=== PATIENT | female | born 1975 | race Caucasian/White ===

== ENCOUNTER 2018-07-14 01:34 | Outpatient (RCR) | payer MEDICARE, SELFPAY ==
[2018-07-14] MEDS: Acetaminophen 325 MG TAB 650 MG PO (13:06)
[2018-07-14] MEDS: Normal Saline Flush 10 ML SYR IVP (13:07)
[2018-07-14] MEDS: diphenhydrAMINE 25 MG CAP PO (13:07)
[2018-07-14 13:59] VITALS: BP 114/57; PULSE 77; RESP 18; TEMP 37.1
[2018-07-14 14:30] VITALS: BP 115/50; PULSE 65; RESP 18; TEMP 37.1
== END 2018-07-23 ==
LOC: INF 01:34
PROVIDERS: PCP Family Medicine; Visit Provider Family Medicine
DX: M32.9 Systemic lupus erythematosus, unspecified (principal)
CPT/HCPCS: 96365; J0490

== ENCOUNTER 2018-08-17 08:22 | Outpatient (RCR) | payer MEDICARE, SELFPAY ==
[2018-08-17 09:13] VITALS: BP 171/84; PULSE 70; RESP 18; TEMP 37.2; O2SAT 97
[2018-08-17] MEDS: Acetaminophen 325 MG TAB 650 MG PO (09:18)
[2018-08-17] MEDS: diphenhydrAMINE 25 MG CAP PO (09:18)
[2018-08-17] MEDS: Normal Saline Flush 10 ML SYR IVP (10:01)
[2018-08-17 10:12] LABS: Abs Immature Grans 0.02 k/cumm (0.0-0.09); Absolute Basophil Count 0.02 k/cumm (0.0-0.2); Absolute Eosinophil Count 0.07 k/cumm (0.0-0.7); Absolute Lymphocyte Count 1.27 k/cumm (1.2-3.4); Absolute Monocyte Count 0.58 k/cumm (0.11-0.7); Absolute Neutrophil Count 4.97 k/cumm (1.2-6.7); Basophils % 0.3; HCT 41.6 % (36.0-46.0); HGB 14.1 g/dL (12.0-15.5); Immature Grans % 0.3; Lymphocytes % 18.3; Mean Corp. HGB Concentration 33.9 g/dL (32.0-36.0); Mean Corpuscular Hemoglobin 28.8 pg (27.0-33.0); Mean Corpuscular Volume 84.9 fL (80-95); Mean Platelet Volume 9.4 fL (8.0-11.0); Monocytes % 8.4; Neutrophils % 71.7; Platelet Count 327 x1000/uL (130-400); RBC Distribution Width 12.5 % (11.7-14.6); White Blood Cell Count 6.93 k/cumm (4.4-10.8)
[2018-08-17 10:25] LABS: ALT 40 U/L (12-78); AST 17 U/L (15-37); Albumin 3.5 g/dL (3.4-5.0); Alkaline Phosphatase 89 U/L (46-116); C-Reactive Protein 0.36 mg/dL (0.0-0.3); CREATININE 0.65 mg/dL (0.55-1.02)
[2018-08-17 10:40] VITALS: BP 132/88; PULSE 71; RESP 18; TEMP 37; O2SAT 97
[2018-08-17 10:49] LABS: ESR 42 MM/HR (0-20)
== END 2018-08-22 23:59 | disposition home or self-care (01) ==
LOC: INF 08:22
PROVIDERS: Internal Medicine; PCP Family Medicine; Visit Provider Family Medicine
DX: M32.9 Systemic lupus erythematosus, unspecified (principal)
CPT/HCPCS: 36415; 85652; 96365; 82040; 82565; 84075; 84450; 84460; 85025; 86140; J0490

== ENCOUNTER 2018-09-15 01:46 | Outpatient (RCR) | payer MEDICARE, SELFPAY ==
[2018-09-15] MEDS: Normal Saline Flush 10 ML SYR IVP (09:13)
[2018-09-15] MEDS: diphenhydrAMINE 25 MG CAP PO (09:37)
[2018-09-15] MEDS: Acetaminophen 325 MG TAB 650 MG PO (09:37)
[2018-09-15 09:52] VITALS: BP 132/80; PULSE 76; RESP 18; TEMP 37; O2SAT 96
== END 2018-09-22 23:59 | disposition home or self-care (01) ==
LOC: INF 01:46
PROVIDERS: PCP Family Medicine; Visit Provider Family Medicine
DX: M32.9 Systemic lupus erythematosus, unspecified (principal)
CPT/HCPCS: 96365; J0490

== ENCOUNTER 2018-10-12 01:56 | Outpatient (RCR) | payer MEDICARE, SELFPAY ==
[2018-10-12 10:18] LABS: ALT 43 U/L (12-78); AST 21 U/L (15-37); Albumin 3.2 g/dL (3.4-5.0); C-Reactive Protein 0.45 mg/dL (0.0-0.3); CREATININE 0.67 mg/dL (0.55-1.02)
[2018-10-12] MEDS: diphenhydrAMINE 25 MG CAP PO (10:38)
[2018-10-12] MEDS: Acetaminophen 325 MG TAB 650 MG PO (10:38)
[2018-10-12 10:46] LABS: ESR 41 MM/HR (0-20)
[2018-10-12] MEDS: Normal Saline Flush 10 ML SYR IVP (10:47)
[2018-10-12 10:49] VITALS: BP 136/85; PULSE 69; RESP 18; TEMP 36.5; O2SAT 99
[2018-10-12 11:14] VITALS: BP 134/77; PULSE 71; RESP 18; TEMP 36.5; O2SAT 96
[2018-10-12 11:54] VITALS: BP 124/47; PULSE 83; RESP 18; TEMP 36.4; O2SAT 96
[2018-10-12 12:12] VITALS: BP 152/76; PULSE 84; RESP 18; TEMP 36.3; O2SAT 98
== END 2018-10-22 23:59 | disposition home or self-care (01) ==
LOC: INF 01:56
PROVIDERS: Internal Medicine; PCP Family Medicine; Visit Provider Family Medicine
DX: M32.9 Systemic lupus erythematosus, unspecified (principal)
CPT/HCPCS: 36415; 85652; 96365; 82040; 82565; 84450; 84460; 86140; J0490

== ENCOUNTER 2018-11-11 02:34 | Outpatient (RCR) | payer MEDICARE, SELFPAY ==
[2018-11-11] MEDS: Acetaminophen 325 MG TAB 650 MG PO (09:12)
[2018-11-11] MEDS: diphenhydrAMINE 25 MG CAP PO (09:13)
[2018-11-11] MEDS: Normal Saline Flush 10 ML SYR IVP (09:13)
[2018-11-11 09:21] VITALS: BP 133/78; PULSE 68; RESP 18; TEMP 37; O2SAT 97
[2018-11-11 09:24] LABS: Abs Immature Grans 0.01 k/cumm (0.0-0.09); Absolute Basophil Count 0.02 k/cumm (0.0-0.2); Absolute Eosinophil Count 0.08 k/cumm (0.0-0.7); Absolute Lymphocyte Count 1.05 k/cumm (1.2-3.4); Absolute Monocyte Count 0.47 k/cumm (0.11-0.7); Absolute Neutrophil Count 3.95 k/cumm (1.2-6.7); Basophils % 0.4; Eosinophils % 1.4; HCT 38.2 % (36.0-46.0); HGB 12.9 g/dL (12.0-15.5); Immature Grans % 0.2; Lymphocytes % 18.8; Mean Corp. HGB Concentration 33.8 g/dL (32.0-36.0); Mean Corpuscular Hemoglobin 28.4 pg (27.0-33.0); Mean Platelet Volume 9.4 fL (8.0-11.0); Monocytes % 8.4; Neutrophils % 70.8; Platelet Count 328 x1000/uL (130-400); RBC 4.55 m/cumm (4.00-5.20); RBC Distribution Width 12.4 % (11.7-14.6); White Blood Cell Count 5.58 k/cumm (4.4-10.8)
[2018-11-11 09:49] LABS: ALT 38 U/L (12-78); Albumin 3.3 g/dL (3.4-5.0); Alkaline Phosphatase 82 U/L (46-116); C-Reactive Protein 0.56 mg/dL (0.0-0.3); CREATININE 0.64 mg/dL (0.55-1.02)
[2018-11-11 09:50] LABS: AST 30 U/L (15-37)
[2018-11-11 10:09] LABS: ESR 39 MM/HR (0-20)
[2018-11-11 10:39] VITALS: BP 140/67; PULSE 75; RESP 98; TEMP 36.5
[2018-11-11 11:09] VITALS: BP 137/78; PULSE 75; TEMP 36.7
== END 2018-11-22 23:59 | disposition home or self-care (01) ==
LOC: INF 02:34
PROVIDERS: PCP Family Medicine; Visit Provider Family Medicine
DX: M32.9 Systemic lupus erythematosus, unspecified (principal); E03.9 Hypothyroidism, unspecified
CPT/HCPCS: 36415; 85652; 96365; 82040; 82565; 84075; 84450; 84460; 85025; 86140; J0490

== ENCOUNTER 2018-12-16 00:54 | Outpatient (RCR) | payer MEDICARE, SELFPAY ==
[2018-12-16] MEDS: Normal Saline Flush 10 ML SYR IVP (08:38)
[2018-12-16] MEDS: Acetaminophen 325 MG TAB 650 MG PO (08:39)
[2018-12-16] MEDS: diphenhydrAMINE 25 MG CAP PO (08:39)
[2018-12-16 09:29] VITALS: BP 126/77; PULSE 81; O2SAT 94
[2018-12-16 09:48] VITALS: BP 130/75; PULSE 81; RESP 18; TEMP 36.6; O2SAT 98
[2018-12-16 10:29] VITALS: BP 144/87; PULSE 82; RESP 16; TEMP 37.1; O2SAT 97
== END 2018-12-23 23:59 | disposition home or self-care (01) ==
LOC: INF 00:54
PROVIDERS: PCP Family Medicine; Visit Provider Family Medicine
DX: M32.9 Systemic lupus erythematosus, unspecified (principal)
CPT/HCPCS: 96365; J0490

== ENCOUNTER 2019-01-01 15:37 | Emergency (ER) | payer MEDICARE, SELFPAY ==
[2019-01-01 16:54] VITALS: BP 162/90; PULSE 99; RESP 16; TEMP 36.5
--- NOTE | 2019-01-01 16:59 | W.ED.GENAD ---
Discharge Plan Disposition Patient Disposition: HOME Condition: Stable Discharge Details Chief Complaint: Sorethroat Clinical Impression: Pharyngitis Primary Care Provider: Awais Fox ED Provider: Faisal Vazquez Home Meds and New Rx's Prescriptions: New amoxicillin 500 mg tablet 500 mg PO TID Qty: 30 RF: 0 Continued Muscle Rub (with camphor) 113 GM cream 1 ambrose Topical BID RF: 0 aspirin [Aspirin Low-Strength] 81 MG tablet,chewable 1 tab.chew PO DAILY RF: 0 DIABETIC SOCKS 1 EACH EACH 2 ea Miscellaneous RF: 0 hydroxychloroquine [Plaquenil] 200 MG tablet 200 mg PO BID Qty: 180 RF: 3 triamcinolone acetonide 15 GM cream 15 gm Topical BID Qty: 80 RF: 3 Denavir 1.5 GM cream 1 ambrose Topical BID Qty: 1.5 RF: 5 cyclobenzaprine 10 MG tablet 10 mg PO HS Qty: 90 RF: 4 naproxen 500 MG tablet 500 mg PO TID Qty: 90 RF: 3 PNV cmb#95-ferrous fumarate-FA 1 EACH tablet 1 ea PO DAILY Qty: 90 RF: 4 nystatin (bulk) 1 EACH powder Topical QID Qty: 60 RF: 2 hydrocodone-acetaminophen 1 EACH tablet 1 tab-cap PO Q4H PRN Qty: 20 RF: 0 levothyroxine 50 MCG tablet 50 mcg PO DAILY Qty: 30 RF: 2 Discharge Instructions Instructions: Pharyngitis (ED) Medical Decision Making 43 yo female with hx of lupus comes in with complaint of sore throat for over a week . Was seen by pcp's office on 12/30 and had negative strep but continues to have sore throat and sinus pressure. She states in the past she requires an abx to recover from these types of things. On exam she is speaking in full sentences, no drooling or stridor, no restricted neck movements and no pain over hyoid with midline uvula, no findings to suggest rpa, patrol captain, epiglotitis. She does have erythema of posterior pharynx. I educated about viral vs bacterial pharyngitis and after discussion she would like to have an abx. Will start her on amoxicillin and advised f/u with pcp and return if worsening HPI General Mode of arrival: ambulatory. Date/Time Provider Initiated Documentation: 01/01/19 16:59. Limitations to Documentation: no limitations. Information obtained by: patient. History of Present Illness 43 year old F presents to the emergency department with the chief complaint of sore throat, described as moderate, Quality is described as aching, Patient reports no radiation. Patient started experiencing this week(s) (1) and it has been constant. No relieving factors improve symptom(s), No exacerbating factors reported . Related Data Home Medications Medication Instructions Recorded Confirmed Muscle Rub (with camphor) 1 ambrose TOPICAL BID 01/24/13 01/01/19 aspirin [Aspirin Low-Strength] 1 tab.chew PO DAILY tab.chew 01/24/13 01/01/19 Diabetic Socks 2 ea MISCELLANEOUS ea 03/16/13 12/30/18 hydroxychloroquine [Plaquenil] 200 mg PO BID #180 tab-cap 03/22/13 01/01/19 triamcinolone acetonide 15 gm TOPICAL BID #80 g 08/19/13 01/01/19 Denavir 1 ambrose TOPICAL BID #1.5 g 12/05/14 01/01/19 cyclobenzaprine 10 mg PO HS #90 tab-cap 06/06/16 01/01/19 naproxen 500 mg PO TID #90 tab 01/23/17 01/01/19 PNV cmb#95-ferrous fumarate-FA 1 ea PO DAILY #90 tab 10/13/17 12/30/18 nystatin (bulk) 0 TOPICAL QID #60 g 11/12/17 12/30/18 hydrocodone-acetaminophen 1 tab-cap PO Q4H PRN #20 tab-cap 05/20/18 01/01/19 levothyroxine 50 mcg PO DAILY #30 tab-cap 06/09/18 01/01/19 amoxicillin 500 mg PO TID #30 tab 01/01/19 Previous Rx's Medication Instructions Recorded PNV cmb#95-ferrous fumarate-FA 1 ea PO DAILY #90 tab 10/13/17 levothyroxine 50 mcg PO DAILY #30 tab-cap 06/09/18 amoxicillin 500 mg PO TID #30 tab 01/01/19 Allergies Allergy/AdvReac Type Severity Reaction Status Date / Time oxycodone AdvReac Intermediate Nausea & Unverified 01/01/19 16:59 Vomiting General Stated Complaint: Sorethroat ROVERTO: 4 Review of Systems Review of Systems All systems reviewed & are unremarkable except as noted in HPI and below Constitutional Denies chills and Denies fever(s) Cardiovascular Denies chest pain Gastrointestinal Denies nausea and Denies vomiting Musculoskeletal Denies joint swelling PFSH Medical History Back pain due to injury External hemorrhoid Lupus (systemic lupus erythematosus) Menorrhagia Obesity Surgical History section knee surgery Family History Father Mental disorder Mother Diabetes Sister Diabetes Grandmother Diabetes Social History Smoking and Tabacco status: Never Exam Const General: no acute distress Orientation: alert HENMT Head: normal to inspection Ears: external ears normal General nose exam: external nose normal Mouth: moist mucous membranes Eyes General: appearance normal, both eyes and all related structures Neck Neck: normal visual inspection Resp Effort & Inspection: normal respiratory effort and able to speak in complete sentences Cardio Rate: regular rate Skin General skin exam: no rashes or lesions noted Neuro General: alert and oriented x3 Extrem General: normal to inspection Psych Mental Status: mental status grossly normal Course Vital Signs Temperature 36.5 C 01/01/19 16:54 Pulse 99 H 01/01/19 16:54 Respiratory Rate 16 01/01/19 16:54 Blood Pressure 162/90 H 01/01/19 16:54 Temperature 36.5 C 01/01/19 16:54 Temperature Source Temporal Artery Scan 01/01/19 16:54 Pulse 99 H 01/01/19 16:54 Respiratory Rate 16 01/01/19 16:54 Blood Pressure 162/90 H 01/01/19 16:54 Blood Pressure Position Sitting 01/01/19 16:54 Oxygen Delivery Method Room Air 01/01/19 16:54 Oxygen Flow Rate 0 01/01/19 16:54 Pain Level 9 01/01/19 16:54
--- NOTE | 2019-01-01 17:09 | ED.GENADUL_ITS ---
Discharge Plan Disposition Patient Disposition: HOME Condition: Stable Discharge Details Chief Complaint: Sorethroat Clinical Impression: Pharyngitis Primary Care Provider: Awais Fox ED Provider: Faisal Vazquez Home Meds and New Rx's Prescriptions: New amoxicillin 500 mg tablet 500 mg PO TID Qty: 30 RF: 0 Continued Muscle Rub (with camphor) 113 GM cream 1 ambrose Topical BID RF: 0 aspirin [Aspirin Low-Strength] 81 MG tablet,chewable 1 tab.chew PO DAILY RF: 0 DIABETIC SOCKS 1 EACH EACH 2 ea Miscellaneous RF: 0 hydroxychloroquine [Plaquenil] 200 MG tablet 200 mg PO BID Qty: 180 RF: 3 triamcinolone acetonide 15 GM cream 15 gm Topical BID Qty: 80 RF: 3 Denavir 1.5 GM cream 1 ambrose Topical BID Qty: 1.5 RF: 5 cyclobenzaprine 10 MG tablet 10 mg PO HS Qty: 90 RF: 4 naproxen 500 MG tablet 500 mg PO TID Qty: 90 RF: 3 PNV cmb#95-ferrous fumarate-FA 1 EACH tablet 1 ea PO DAILY Qty: 90 RF: 4 nystatin (bulk) 1 EACH powder Topical QID Qty: 60 RF: 2 hydrocodone-acetaminophen 1 EACH tablet 1 tab-cap PO Q4H PRN Qty: 20 RF: 0 levothyroxine 50 MCG tablet 50 mcg PO DAILY Qty: 30 RF: 2 Discharge Instructions Instructions: Pharyngitis (ED) Medical Decision Making 43 yo female with hx of lupus comes in with complaint of sore throat for over a week . Was seen by pcp's office on 12/30 and had negative strep but continues to have sore throat and sinus pressure. She states in the past she requires an abx to recover from these types of things. On exam she is speaking in full sentences, no drooling or stridor, no restricted neck movements and no pain over hyoid with midline uvula, no findings to suggest rpa, transmission rebuilder, epiglotitis. She does have erythema of posterior pharynx. I educated about viral vs bacterial pharyngitis and after discussion she would like to have an abx. Will start her on amoxicillin and advised f/u with pcp and return if worsening HPI General Mode of arrival: ambulatory . Date/Time Provider Initiated Documentation: 01/01/19 16:59 . Limitations to Documentation: no limitations . Information obtained by: patient . History of Present Illness 43 year old F presents to the emergency department with the chief complaint of sore throat, described as moderate, Quality is described as aching, Patient reports no radiation. Patient started experiencing this week(s) (1) and it has been constant. No relieving factors improve symptom(s), No exacerbating factors reported . Related Data Home Medications Medication Instructions Recorded Confirmed Muscle Rub (with camphor) 1 ambrose TOPICAL BID 01/24/13 01/01/19 aspirin [Aspirin Low-Strength] 1 tab.chew PO DAILY tab.chew 01/24/13 01/01/19 Diabetic Socks 2 ea MISCELLANEOUS ea 03/16/13 12/30/18 hydroxychloroquine [Plaquenil] 200 mg PO BID #180 tab-cap 03/22/13 01/01/19 triamcinolone acetonide 15 gm TOPICAL BID #80 g 08/19/13 01/01/19 Denavir 1 ambrose TOPICAL BID #1.5 g 12/05/14 01/01/19 cyclobenzaprine 10 mg PO HS #90 tab-cap 06/06/16 01/01/19 naproxen 500 mg PO TID #90 tab 01/23/17 01/01/19 PNV cmb#95-ferrous fumarate-FA 1 ea PO DAILY #90 tab 10/13/17 12/30/18 nystatin (bulk) 0 TOPICAL QID #60 g 11/12/17 12/30/18 hydrocodone-acetaminophen 1 tab-cap PO Q4H PRN #20 tab-cap 05/20/18 01/01/19 levothyroxine 50 mcg PO DAILY #30 tab-cap 06/09/18 01/01/19 amoxicillin 500 mg PO TID #30 tab 01/01/19 Previous Rx's Medication Instructions Recorded PNV cmb#95-ferrous fumarate-FA 1 ea PO DAILY #90 tab 10/13/17 levothyroxine 50 mcg PO DAILY #30 tab-cap 06/09/18 amoxicillin 500 mg PO TID #30 tab 01/01/19 Allergies Allergy/AdvReac Type Severity Reaction Status Date / Time oxycodone AdvReac Intermediate Nausea & Unverified 01/01/19 16:59 Vomiting General Stated Complaint: Sorethroat ROVERTO: 4 Review of Systems Review of Systems All systems reviewed & are unremarkable except as noted in HPI and below Constitutional Denies chills and Denies fever(s) Cardiovascular Denies chest pain Gastrointestinal Denies nausea and Denies vomiting Musculoskeletal Denies joint swelling PFSH Medical History Back pain due to injury External hemorrhoid Lupus (systemic lupus erythematosus) Menorrhagia Obesity Surgical History section knee surgery Family History Father Mental disorder Mother Diabetes Sister Diabetes Grandmother Diabetes Social History Smoking and Tabacco status: Never Exam Const General: no acute distress Orientation: alert HENMT Head: normal to inspection Ears: external ears normal General nose exam: external nose normal Mouth: moist mucous membranes Eyes General: appearance normal, both eyes and all related structures Neck Neck: normal visual inspection Resp Effort & Inspection: normal respiratory effort and able to speak in complete sentences Cardio Rate: regular rate Skin General skin exam: no rashes or lesions noted Neuro General: alert and oriented x3 Extrem General: normal to inspection Psych Mental Status: mental status grossly normal Course Vital Signs Temperature 36.5 C 01/01/19 16:54 Pulse 99 H 01/01/19 16:54 Respiratory Rate 16 01/01/19 16:54 Blood Pressure 162/90 H 01/01/19 16:54 Temperature 36.5 C 01/01/19 16:54 Temperature Source Temporal Artery Scan 01/01/19 16:54 Pulse 99 H 01/01/19 16:54 Respiratory Rate 16 01/01/19 16:54 Blood Pressure 162/90 H 01/01/19 16:54 Blood Pressure Position Sitting 01/01/19 16:54 Oxygen Delivery Method Room Air 01/01/19 16:54 Oxygen Flow Rate 0 01/01/19 16:54 Pain Level 9 01/01/19 16:54
== END 2019-01-01 17:48 | disposition home or self-care (01) ==
PROVIDERS: Emergency Provider Emergency Medicine; PCP Family Medicine
DX: J02.9 Acute pharyngitis, unspecified (principal)
CPT/HCPCS: 99283

== ENCOUNTER 2019-01-14 01:03 | Outpatient (RCR) | payer MEDICARE, SELFPAY | END 2019-01-20 23:59 | disposition home or self-care (01) | LOC: INF 01:03 | PROVIDERS: PCP Family Medicine; Visit Provider Family Medicine | DX: R69 Illness, unspecified (principal) ==

== ENCOUNTER 2019-02-18 01:50 | Outpatient (RCR) | payer MEDICARE, SELFPAY ==
[2019-02-18] MEDS: diphenhydrAMINE 25 MG CAP PO (08:45)
[2019-02-18] MEDS: Normal Saline Flush 10 ML SYR IVP (08:45)
[2019-02-18] MEDS: Acetaminophen 325 MG TAB 650 MG PO (08:45)
[2019-02-18 08:50] VITALS: BP 138/71; PULSE 85; RESP 18; TEMP 36.5; O2SAT 96
[2019-02-18 08:54] LABS: Abs Immature Grans 0.01 k/cumm (0.0-0.09); Absolute Basophil Count 0.03 k/cumm (0.0-0.2); Absolute Eosinophil Count 0.09 k/cumm (0.0-0.7); Absolute Lymphocyte Count 1.09 k/cumm (1.2-3.4); Absolute Neutrophil Count 4.59 k/cumm (1.2-6.7); Basophils % 0.5; Eosinophils % 1.4; HCT 42.4 % (36.0-46.0); HGB 14.4 g/dL (12.0-15.5); Immature Grans % 0.2; Lymphocytes % 17.3; Mean Corpuscular Hemoglobin 27.2 pg (27.0-33.0); Mean Corpuscular Volume 80.2 fL (80-95); Mean Platelet Volume 9.6 fL (8.0-11.0); Monocytes % 7.9; Neutrophils % 72.7; Platelet Count 314 x1000/uL (130-400); RBC 5.29 m/cumm (4.00-5.20); RBC Distribution Width 13.8 % (11.7-14.6); White Blood Cell Count 6.31 k/cumm (4.4-10.8)
[2019-02-18 09:10] LABS: ALT 35 U/L (12-78); AST 21 U/L (15-37); Albumin 3.6 g/dL (3.4-5.0); Alkaline Phosphatase 87 U/L (46-116); C-Reactive Protein 0.49 mg/dL (0.0-0.3); CREATININE 0.69 mg/dL (0.55-1.02)
[2019-02-18 09:31] LABS: ESR 36 MM/HR (0-20)
[2019-02-18 09:51] VITALS: BP 133/88; PULSE 87; RESP 18; TEMP 36.4; O2SAT 98
[2019-02-18 10:17] VITALS: BP 128/50; PULSE 75; RESP 18; TEMP 37; O2SAT 95
[2019-02-18 11:03] VITALS: BP 119/79; PULSE 81; RESP 16; TEMP 36.8; O2SAT 98
== END 2019-02-20 23:59 | disposition home or self-care (01) ==
LOC: INF 01:50
PROVIDERS: PCP Family Medicine; Visit Provider Family Medicine
DX: M32.9 Systemic lupus erythematosus, unspecified (principal)
CPT/HCPCS: 36415; 85652; 96365; 82040; 82565; 84075; 84450; 84460; 85025; 86140; J0490

== ENCOUNTER 2019-03-18 02:45 | Outpatient (RCR) | payer MEDICARE, SELFPAY ==
[2019-03-18] MEDS: Acetaminophen 325 MG TAB 650 MG PO (07:53)
[2019-03-18] MEDS: Normal Saline Flush 10 ML SYR IVP (07:53)
[2019-03-18] MEDS: diphenhydrAMINE 25 MG CAP PO (07:53)
[2019-03-18 08:50] VITALS: BP 118/75; PULSE 69; RESP 18; TEMP 36.7; O2SAT 95
[2019-03-18 09:20] VITALS: BP 120/67; PULSE 67; RESP 20; TEMP 36.7; O2SAT 97
[2019-03-18 09:55] VITALS: BP 113/70; PULSE 70; RESP 18; TEMP 36.7; O2SAT 96
== END 2019-03-22 23:59 | disposition home or self-care (01) ==
LOC: INF 02:45
PROVIDERS: PCP Family Medicine; Visit Provider Family Medicine
DX: M32.9 Systemic lupus erythematosus, unspecified (principal)
CPT/HCPCS: 96365; J0490

== ENCOUNTER 2019-04-20 01:47 | Outpatient (RCR) | payer MEDICARE, SELFPAY | END 2019-04-22 23:59 | disposition home or self-care (01) | LOC: INF 01:47 | PROVIDERS: PCP Family Medicine; Visit Provider Family Medicine | DX: R69 Illness, unspecified (principal) ==

== ENCOUNTER 2019-05-11 01:07 | Outpatient (RCR) | payer MEDICARE, SELFPAY ==
[2019-05-11] MEDS: diphenhydrAMINE 25 MG CAP PO (13:15)
[2019-05-11] MEDS: Acetaminophen 325 MG TAB 650 MG PO (13:15)
[2019-05-11] MEDS: Normal Saline Flush 10 ML SYR IVP (13:27)
[2019-05-11 13:30] VITALS: BP 114/78; PULSE 71; RESP 18; TEMP 36.7; O2SAT 95
[2019-05-11 13:30] LABS: Abs Immature Grans 0.01 k/cumm (0.0-0.09); Absolute Basophil Count 0.03 k/cumm (0.0-0.2); Absolute Lymphocyte Count 1.47 k/cumm (1.2-3.4); Absolute Monocyte Count 0.51 k/cumm (0.11-0.7); Absolute Neutrophil Count 4.82 k/cumm (1.2-6.7); Basophils % 0.4; Eosinophils % 1.4; HCT 40.1 % (36.0-46.0); HGB 13.8 g/dL (12.0-15.5); Immature Grans % 0.1; Lymphocytes % 21.2; Mean Corp. HGB Concentration 34.4 g/dL (32.0-36.0); Mean Corpuscular Hemoglobin 28.4 pg (27.0-33.0); Mean Corpuscular Volume 82.5 fL (80-95); Monocytes % 7.3; Neutrophils % 69.6; Platelet Count 239 x1000/uL (130-400); RBC 4.86 m/cumm (4.00-5.20); RBC Distribution Width 13.3 % (11.7-14.6); White Blood Cell Count 6.94 k/cumm (4.4-10.8)
[2019-05-11 14:06] VITALS: BP 115/75; PULSE 75; RESP 18; TEMP 36.5; O2SAT 98
[2019-05-11 14:41] VITALS: BP 143/82; PULSE 70; RESP 18; TEMP 36.3; O2SAT 94
[2019-05-11 15:48] LABS: ALT 30 U/L (12-78); AST 15 U/L (15-37); Albumin 3.1 g/dL (3.4-5.0); Alkaline Phosphatase 83 U/L (46-116); C-Reactive Protein 0.52 mg/dL (0.0-0.3); CREATININE 0.82 mg/dL (0.55-1.02)
[2019-05-11 16:51] LABS: ESR 28 MM/HR (0-20)
== END 2019-05-22 23:59 | disposition home or self-care (01) ==
LOC: INF 01:07
PROVIDERS: PCP Family Medicine; Visit Provider Family Medicine
DX: M32.9 Systemic lupus erythematosus, unspecified (principal)
CPT/HCPCS: 36415; 85652; 96365; 82040; 82565; 84075; 84450; 84460; 85025; 86140; J0490

== ENCOUNTER 2019-06-16 01:44 | Outpatient (RCR) | payer MEDICARE, SELFPAY ==
[2019-06-16] MEDS: Acetaminophen 325 MG TAB 650 MG PO (13:51)
[2019-06-16] MEDS: diphenhydrAMINE 25 MG CAP PO (13:51)
[2019-06-16] MEDS: Normal Saline Flush 10 ML SYR IVP (13:51)
[2019-06-16 13:55] VITALS: BP 122/81; PULSE 82; RESP 18; TEMP 36.4; O2SAT 98
[2019-06-16 14:30] VITALS: BP 119/80; PULSE 77; RESP 18; TEMP 36.5; O2SAT 99
== END 2019-06-22 23:59 | disposition home or self-care (01) ==
LOC: INF 01:44
PROVIDERS: PCP Family Medicine; Visit Provider Family Medicine
DX: M32.9 Systemic lupus erythematosus, unspecified (principal)
CPT/HCPCS: 96365; J0490

== ENCOUNTER 2019-07-22 01:13 | Outpatient (RCR) | payer MEDICARE, SELFPAY ==
[2019-07-22] MEDS: Acetaminophen 325 MG TAB 650 MG PO (11:00)
[2019-07-22] MEDS: Normal Saline Flush 10 ML SYR IVP (11:01)
[2019-07-22] MEDS: diphenhydrAMINE 25 MG CAP PO (11:01)
[2019-07-22 12:20] LABS: Abs Immature Grans 0.01 k/cumm (0.0-0.09); Absolute Basophil Count 0.03 k/cumm (0.0-0.2); Absolute Eosinophil Count 0.07 k/cumm (0.0-0.7); Absolute Lymphocyte Count 1.33 k/cumm (1.2-3.4); Absolute Neutrophil Count 6.32 k/cumm (1.2-6.7); Basophils % 0.4; Eosinophils % 0.8; HCT 43.7 % (36.0-46.0); HGB 14.9 g/dL (12.0-15.5); Immature Grans % 0.1; Lymphocytes % 16.1; Mean Corp. HGB Concentration 34.1 g/dL (32.0-36.0); Mean Corpuscular Hemoglobin 28.4 pg (27.0-33.0); Mean Corpuscular Volume 83.2 fL (80-95); Mean Platelet Volume 9.6 fL (8.0-11.0); Monocytes % 6.1; Neutrophils % 76.5; Platelet Count 363 x1000/uL (130-400); RBC 5.25 m/cumm (4.00-5.20); RBC Distribution Width 13.3 % (11.7-14.6); White Blood Cell Count 8.26 k/cumm (4.4-10.8)
[2019-07-22 12:23] VITALS: BP 118/89; PULSE 75; RESP 18; TEMP 36.5; O2SAT 99
[2019-07-22 12:34] LABS: ALT 31 U/L (14-59); AST 17 U/L (15-37); Albumin 3.6 g/dL (3.4-5.0); Alkaline Phosphatase 96 U/L (46-116); C-Reactive Protein 0.79 mg/dL (0.0-0.3)
[2019-07-22 12:49] VITALS: BP 118/88; PULSE 83; RESP 18; TEMP 37; O2SAT 100
[2019-07-22 13:08] VITALS: BP 116/80; PULSE 82; RESP 18; TEMP 36.8; O2SAT 98
== END 2019-07-23 23:59 | disposition home or self-care (01) ==
LOC: INF 01:13
PROVIDERS: PCP Family Medicine; Visit Provider Internal Medicine
DX: M32.9 Systemic lupus erythematosus, unspecified (principal)
CPT/HCPCS: 36415; 96365; 82040; 84075; 84450; 84460; 85025; 86140; J0490

== ENCOUNTER 2019-08-18 02:12 | Outpatient (RCR) | payer MEDICARE, SELFPAY ==
[2019-08-18] MEDS: Acetaminophen 325 MG TAB 650 MG PO (12:55)
[2019-08-18] MEDS: diphenhydrAMINE 25 MG CAP PO (12:55)
[2019-08-18] MEDS: Normal Saline Flush 10 ML SYR IVP (12:56)
== END 2019-08-22 23:59 | disposition home or self-care (01) ==
LOC: INF 02:12
PROVIDERS: PCP Family Medicine; Visit Provider Internal Medicine
DX: M32.9 Systemic lupus erythematosus, unspecified (principal)
CPT/HCPCS: 96365; J0490

== ENCOUNTER 2019-09-22 01:55 | Outpatient (RCR) | payer MEDICARE, SELFPAY ==
[2019-09-22] MEDS: diphenhydrAMINE 25 MG CAP PO (10:30)
[2019-09-22] MEDS: Normal Saline Flush 10 ML SYR IVP (10:30)
[2019-09-22] MEDS: Acetaminophen 325 MG TAB 650 MG PO (10:30)
[2019-09-22 10:38] VITALS: BP 114/76; PULSE 79; RESP 18; TEMP 37.1; O2SAT 98
[2019-09-22 11:02] LABS: Abs Immature Grans 0.01 k/cumm (0.0-0.09); Absolute Basophil Count 0.02 k/cumm (0.0-0.2); Absolute Eosinophil Count 0.05 k/cumm (0.0-0.7); Absolute Lymphocyte Count 0.79 k/cumm (1.2-3.4); Absolute Monocyte Count 0.69 k/cumm (0.11-0.7); Absolute Neutrophil Count 5.89 k/cumm (1.2-6.7); Basophils % 0.3; Eosinophils % 0.7; HCT 42.4 % (36.0-46.0); HGB 14.4 g/dL (12.0-15.5); Immature Grans % 0.1; Lymphocytes % 10.6; Mean Corpuscular Hemoglobin 28.5 pg (27.0-33.0); Mean Corpuscular Volume 83.8 fL (80-95); Mean Platelet Volume 9.5 fL (8.0-11.0); Monocytes % 9.3; Platelet Count 362 x1000/uL (130-400); RBC 5.06 m/cumm (4.00-5.20); White Blood Cell Count 7.45 k/cumm (4.4-10.8)
[2019-09-22 11:23] VITALS: BP 127/80; PULSE 79; RESP 19; TEMP 37.2; O2SAT 99
[2019-09-22 11:43] LABS: ESR 41 mm/hr (0-20)
[2019-09-22 11:53] VITALS: BP 127/83; PULSE 77; RESP 18; TEMP 37.1; O2SAT 100
[2019-09-22 12:23] VITALS: BP 124/83; PULSE 72; RESP 19; TEMP 37.2; O2SAT 100
[2019-09-22 12:43] LABS: ALT 31 U/L (14-59); AST 23 U/L (15-37); Albumin 3.7 g/dL (3.4-5.0); Alkaline Phosphatase 92 U/L (46-116); C-Reactive Protein 0.81 mg/dL (0.0-0.3); CREATININE 0.77 mg/dL (0.55-1.02)
== END 2019-09-22 23:59 | disposition home or self-care (01) ==
LOC: INF 01:55
PROVIDERS: Internal Medicine; PCP Family Medicine; Visit Provider Internal Medicine
DX: M32.9 Systemic lupus erythematosus, unspecified (principal)
CPT/HCPCS: 36415; 85652; 96365; 82040; 82565; 84075; 84450; 84460; 85025; 86140; J0490

== ENCOUNTER 2019-10-27 02:08 | Outpatient (RCR) | payer MEDICARE, SELFPAY ==
[2019-10-27 10:36] VITALS: BP 143/86; PULSE 77; RESP 19; TEMP 36.4; O2SAT 98
[2019-10-27] MEDS: diphenhydrAMINE 25 MG CAP PO (10:36)
[2019-10-27] MEDS: Acetaminophen 325 MG TAB 650 MG PO (10:36)
[2019-10-27] MEDS: Normal Saline Flush 10 ML SYR IVP (10:37)
[2019-10-27 11:06] LABS: Abs Immature Grans 0.01 k/cumm (0.0-0.09); Absolute Basophil Count 0.02 k/cumm (0.0-0.2); Absolute Eosinophil Count 0.04 k/cumm (0.0-0.7); Absolute Lymphocyte Count 0.85 k/cumm (1.2-3.4); Basophils % 0.3; Eosinophils % 0.7; HCT 40.2 % (36.0-46.0); HGB 13.6 g/dL (12.0-15.5); Immature Grans % 0.2; Lymphocytes % 14.1; Mean Corp. HGB Concentration 33.8 g/dL (32.0-36.0); Mean Corpuscular Hemoglobin 28.5 pg (27.0-33.0); Mean Corpuscular Volume 84.1 fL (80-95); Mean Platelet Volume 9.3 fL (8.0-11.0); Monocytes % 8.3; Neutrophils % 76.4; Platelet Count 322 x1000/uL (130-400); RBC 4.78 m/cumm (4.00-5.20); RBC Distribution Width 12.5 % (11.7-14.6); White Blood Cell Count 6.02 k/cumm (4.4-10.8)
[2019-10-27 11:23] LABS: ALT 23 U/L (14-59); AST 23 U/L (15-37); Albumin 3.3 g/dL (3.4-5.0); C-Reactive Protein 0.97 mg/dL (0.0-0.3); CREATININE 0.59 mg/dL (0.55-1.02)
[2019-10-27 11:35] VITALS: BP 143/86; PULSE 80; RESP 19; TEMP 36.5; O2SAT 98
[2019-10-27 11:46] LABS: ESR 37 mm/hr (0-20)
[2019-10-27 12:05] VITALS: BP 127/85; PULSE 70; RESP 19; TEMP 36.6; O2SAT 99
[2019-10-27 12:35] VITALS: BP 126/88; PULSE 82; RESP 18; TEMP 36.7; O2SAT 98
[2019-11-21] MEDS: Normal Saline Flush 10 ML SYR IVP (12:45)
[2019-11-21] MEDS: Acetaminophen 325 MG TAB 650 MG PO (12:46)
[2019-11-21] MEDS: diphenhydrAMINE 25 MG CAP PO (12:46)
== END 2019-11-22 23:59 | disposition home or self-care (01) ==
LOC: INF 02:08
PROVIDERS: Internal Medicine; PCP Family Medicine; Visit Provider Family Medicine
DX: M32.9 Systemic lupus erythematosus, unspecified (principal)
CPT/HCPCS: 36415; 85652; 96365; 82040; 82565; 84450; 84460; 85025; 86140; J0490

== ENCOUNTER 2019-11-01 19:22 | Emergency (ER) | payer OTHER, SELFPAY ==
[2019-11-01 19:29] VITALS: BP 128/79; PULSE 70; RESP 16; TEMP 36.7; O2SAT 97
--- NOTE | 2019-11-01 20:56 | ED.GENADUL_ITS ---
Discharge Plan Disposition Patient Disposition: HOME Condition: Good Discharge Details Chief Complaint: GenMedical Clinical Impression: Needle stick injury Primary Care Provider: Awais Fox ED Provider: Chela Rodriguez Home Meds and New Rx's Prescriptions: New Isentress 400 mg tablet 400 mg PO BID Qty: 50 RF: 0 Truvada 200-300 mg tablet 1 tab PO DAILY Qty: 25 RF: 0 ondansetron HCl [Zofran] 4 mg tablet 4 mg PO Q8H PRN (Reason: nausea and vomiting) Qty: 60 RF: 0 No Action Muscle Rub (with camphor) 113 GM cream 1 ambrose Topical BID RF: 0 aspirin [Aspirin Low-Strength] 81 MG tablet,chewable 1 tab.chew PO DAILY RF: 0 DIABETIC SOCKS 1 EACH EACH 2 ea Miscellaneous RF: 0 hydroxychloroquine [Plaquenil] 200 MG tablet 200 mg PO BID Qty: 180 RF: 3 triamcinolone acetonide 15 GM cream 15 gm Topical BID Qty: 80 RF: 3 Denavir 1.5 GM cream 1 ambrose Topical BID Qty: 1.5 RF: 5 cyclobenzaprine 10 MG tablet 10 mg PO HS Qty: 90 RF: 4 naproxen 500 MG tablet 500 mg PO TID Qty: 90 RF: 3 PNV cmb#95-ferrous fumarate-FA 1 EACH tablet 1 ea PO DAILY Qty: 90 RF: 4 nystatin (bulk) 1 EACH powder 0 Topical QID Qty: 60 RF: 2 hydrocodone-acetaminophen 1 EACH tablet 1 tab-cap PO Q4H PRN Qty: 20 RF: 0 levothyroxine 50 MCG tablet 50 mcg PO DAILY Qty: 30 RF: 2 Discharge Instructions Instructions: Needle Stick Injuries (ED) Additional Instructions: Have prompt reevaluation with occupational medicine and/or primary care doctor. Use prophylactic medications as prescribed. Nausea medication provided for symptomatic relief if needed Have repeat lab testing with primary care doctor or occupational medicine in 4 to 6 weeks, again in 3 months, again in 6 months. Encourage source patient testing. Return for any worsening or concerns sooner if needed Follow-up with your primary care doctor for reevaluation and for lab results. 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 Patient ultimately sustained a needlestick in her digit after attempting to draw patient's blood with a hollow bore needle. Patient's tetanus is unknown. She believes she is up-to-date on hepatitis B. Patient is concerned with possible HIV. Patient was offered tetanus vaccine this evening. Recommended baseline lab work to be drawn for hepatitis B titer as well as hep C and HIV baseline. Source patient has an unknown medical history as he was a new inmate therefore patient is interested in taking HIV prophylaxis. Patient to be provided starter pack however she is unsure if she is going to take the medications this evening. She will pursue source patient testing. Patient is aware that medication should be given soon as possible for best effect and certainly within 3 days for best effect. Patient reports her understanding. Patient was provided HIV medications for home in addition to nausea medication for symptomatic relief if she does choose to take the medications. Patient advised if she is going to the medication she certainly will require follow-up although follow-up will be required regardless as she will require repeat lab testing in 4 to 6 weeks, 3 months and again in 6 months. 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 Discussed exposure risk at length. Patient reports understanding. Labs are unremarkable. Meds provided. The patient was stable and requested discharge. Prior to discharge, my usual and customary return precautions were reviewed with the patient - this included follow-up instructions and reasons to return to the Emergency Department if conditions worsens, does not improve as expected, or other new concerns arise. HPI General Date/Time Provider Initiated Documentation: 11/01/19 19:34 . HPI Narrative: This a 44-year-old patient who presents for complaints of a needlestick which occurred at approximately 11:00 this morning. 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 Patient has an unknown HIV and hepatitis status as she was drawing hepatitis testing on this patient who is new inmate. Patient reports she believes her hepatitis B is up-to-date. Tetanus is unknown. Source patient's medical history unknown outside of medications he takes for hyperlipidemia. Related Data Home Medications Medication Instructions Recorded Confirmed Muscle Rub (with camphor) 1 ambrose TOPICAL BID 01/24/13 02/18/19 aspirin [Aspirin Low-Strength] 1 tab.chew PO DAILY tab.chew 01/24/13 02/18/19 Diabetic Socks 2 ea MISCELLANEOUS ea 03/16/13 02/18/19 hydroxychloroquine [Plaquenil] 200 mg PO BID #180 tab-cap 03/22/13 02/18/19 triamcinolone acetonide 15 gm TOPICAL BID #80 g 08/19/13 02/18/19 Denavir 1 ambrose TOPICAL BID #1.5 g 12/05/14 02/18/19 cyclobenzaprine 10 mg PO HS #90 tab-cap 06/06/16 02/18/19 naproxen 500 mg PO TID #90 tab 01/23/17 02/18/19 PNV cmb#95-ferrous fumarate-FA 1 ea PO DAILY #90 tab 10/13/17 02/18/19 nystatin (bulk) 0 TOPICAL QID #60 g 11/12/17 02/18/19 hydrocodone-acetaminophen 1 tab-cap PO Q4H PRN #20 tab-cap 05/20/18 02/18/19 levothyroxine 50 mcg PO DAILY #30 tab-cap 06/09/18 02/18/19 emtricitabine-tenofovir (TDF) 1 tab PO DAILY #25 tab 11/01/19 [Truvada] ondansetron HCl [Zofran] 4 mg PO Q8H PRN #60 tab 11/01/19 raltegravir [Isentress] 400 mg PO BID #50 tab 11/01/19 Previous Rx's Medication Instructions Recorded PNV cmb#95-ferrous fumarate-FA 1 ea PO DAILY #90 tab 10/13/17 levothyroxine 50 mcg PO DAILY #30 tab-cap 06/09/18 emtricitabine-tenofovir (TDF) 1 tab PO DAILY #25 tab 11/01/19 [Truvada] ondansetron HCl [Zofran] 4 mg PO Q8H PRN #60 tab 11/01/19 raltegravir [Isentress] 400 mg PO BID #50 tab 11/01/19 Allergies Allergy/AdvReac Type Severity Reaction Status Date / Time oxycodone AdvReac Intermediate Nausea & Unverified 11/01/19 19:27 Vomiting General Stated Complaint: GenMedical ROVERTO: 4 Review of Systems All systems reviewed & are unremarkable except as noted in HPI and below Integumentary/Breasts Comments: Needlestick digit PFSH Medical History Back pain due to injury External hemorrhoid Lupus (systemic lupus erythematosus) Menorrhagia Obesity Surgical History (Updated 05/11/19 @ 21:22 by Awais Fox MD) section x 3 History of arthroscopic knee surgery (Resolved) History of section (Resolved) knee surgery Social History Smoking/Tobacco Use Status: Never Drug use: Never Do you feel safe in your relationship?: Yes Exam Narrative Exam Narrative: CONST: Healthy appearing patient, in no acute distress. Well hydrated. Alert and alert. MUSCULOSKELETAL: Normal Gait. FROM of all extremities. SKIN: Normal. Dry. No rashes. Small break in the skin noted at the distal tip of the finger NEURO: Alert and awake. Speech clear. PSYCH: Normal affect. Cooperative. Course Vital Signs Vital signs: Vital Signs Temperature 36.7 C 11/01/19 19:29 Pulse 70 11/01/19 19:29 Respiratory Rate 16 11/01/19 19:29 Blood Pressure 128/79 11/01/19 19:29 Pulse Oximetry 97 11/01/19 19:29 Temperature 36.7 C 11/01/19 19:29 Temperature Source Skin 11/01/19 19:29 Pulse 70 11/01/19 19:29 Respiratory Rate 16 11/01/19 19:29 Respiratory Effort 11/01/19 19:34 Blood Pressure 128/79 11/01/19 19:29 Pulse Oximetry 97 11/01/19 19:29 Oxygen Delivery Method Room Air 11/01/19 19:29 Oxygen Flow Rate 0 11/01/19 19:29 Pain Level 0 11/01/19 19:29
[2019-11-01 21:09] LABS: ALT 24 U/L (14-59); AST 16 U/L (15-37); Albumin 3.7 g/dL (3.4-5.0); Alkaline Phosphatase 93 U/L (46-116); Anion Gap 7.2 mmol/L (3-11); BUN 21 mg/dL (7-18); Bilirubin, Total 0.2 mg/dL (0.2-1.0); CO2 28.8 mmol/L (21.0-32.0); CREATININE 0.73 mg/dL (0.55-1.02); Calcium 9.1 mg/dL (8.5-10.1); Chloride 105 mmol/L (98-107); Glucose 95 mg/dL (74-106); Potassium 4.5 mmol/L (3.5-5.1); Sodium 141 mmol/L (136-145); Total Protein 7.8 g/dL (6.4-8.2)
[2019-11-01 21:17] LABS: Abs Immature Grans 0.01 k/cumm (0.0-0.09); Absolute Basophil Count 0.02 k/cumm (0.0-0.2); Absolute Eosinophil Count 0.11 k/cumm (0.0-0.7); Absolute Lymphocyte Count 1.73 k/cumm (1.2-3.4); Absolute Monocyte Count 0.59 k/cumm (0.11-0.7); Absolute Neutrophil Count 4.87 k/cumm (1.2-6.7); Basophils % 0.3; Eosinophils % 1.5; HCT 41.4 % (36.0-46.0); Immature Grans % 0.1; Lymphocytes % 23.6; Mean Corp. HGB Concentration 33.8 g/dL (32.0-36.0); Mean Corpuscular Hemoglobin 28.4 pg (27.0-33.0); Mean Platelet Volume 9.3 fL (8.0-11.0); Neutrophils % 66.5; Platelet Count 358 x1000/uL (130-400); RBC 4.93 m/cumm (4.00-5.20); RBC Distribution Width 12.8 % (11.7-14.6); White Blood Cell Count 7.33 k/cumm (4.4-10.8)
[2019-11-01 21:42] LABS: HIV 1/2 Ab Rapid Negative (Negative)
--- NOTE | 2019-11-01 22:23 | NUR.NOTE ---
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 Patient informed of reason for wait.
[2019-11-01] MEDS: Raltegravir Potassium 400 MG TAB PO ×2 (22:53→22:55)
[2019-11-01] MEDS: Ondansetron O.D.T. 4 MG TABEF (22:54)
[2019-11-01] MEDS: Emtricitabine/Tenofovir 200 mg/300 mg TAB 1 EACH PO (22:54)
[2019-11-01 23:00] VITALS: BP 126/80; PULSE 66; RESP 20; O2SAT 99
[2019-11-03 11:49] LABS: HIV-1/2 Ag & Ab Screen Negative (Negative)
[2019-11-03 16:02] LABS: Hepatitis C Ab w Rflx HCV PCR Negative (Negative)
[2019-11-03 16:18] LABS: Hepatitis B Surface Ag Negative (Negative)
== END 2019-11-01 23:05 | disposition home or self-care (01) ==
PROVIDERS: Emergency Provider Physician Assistant; PCP Family Medicine
DX: S61.235A Puncture wound without foreign body of left ring finger without damage to nail, initial encounter (principal); W46.1XXA Contact with contaminated hypodermic needle, initial encounter
CPT/HCPCS: 36415; 80053; 86803; 87340; 87389; 90471; 99284; 85025; 99283

== ENCOUNTER 2019-11-21 01:18 | Outpatient (RCR) | payer MEDICARE, SELFPAY | END 2019-11-22 23:59 | disposition home or self-care (01) | LOC: INF 01:18 | PROVIDERS: PCP Family Medicine; Visit Provider Family Medicine | DX: R69 Illness, unspecified (principal) | CPT/HCPCS: 96365; J0490 ==

== ENCOUNTER 2019-12-19 02:06 | Outpatient (RCR) | payer MEDICARE, SELFPAY | END 2019-12-23 23:59 | disposition home or self-care (01) | LOC: INF 02:06 | PROVIDERS: PCP Family Medicine; Visit Provider Family Medicine | DX: R69 Illness, unspecified (principal) ==

== ENCOUNTER 2019-12-29 02:01 | Outpatient (RCR) | payer MEDICARE, SELFPAY ==
[2019-12-29] MEDS: diphenhydrAMINE 25 MG CAP PO (12:19)
[2019-12-29] MEDS: Acetaminophen 325 MG TAB 650 MG PO (12:20)
[2019-12-29 12:45] LABS: Abs Immature Grans 0.01 k/cumm (0.0-0.09); Absolute Basophil Count 0.02 k/cumm (0.0-0.2); Absolute Eosinophil Count 0.08 k/cumm (0.0-0.7); Absolute Lymphocyte Count 0.83 k/cumm (1.2-3.4); Absolute Monocyte Count 0.43 k/cumm (0.11-0.7); Absolute Neutrophil Count 5.72 k/cumm (1.2-6.7); Basophils % 0.3; Eosinophils % 1.1; HCT 42.4 % (36.0-46.0); HGB 14.5 g/dL (12.0-15.5); Immature Grans % 0.1 %; Lymphocytes % 11.7; Mean Corp. HGB Concentration 34.2 g/dL (32.0-36.0); Mean Corpuscular Hemoglobin 28.2 pg (27.0-33.0); Mean Corpuscular Volume 82.3 fL (80-95); Mean Platelet Volume 9.4 fL (8.0-11.0); Monocytes % 6.1; Neutrophils % 80.7; Platelet Count 356 x1000/uL (130-400); RBC 5.15 m/cumm (4.00-5.20); RBC Distribution Width 13.2 % (11.7-14.6); White Blood Cell Count 7.09 k/cumm (4.4-10.8)
[2019-12-29 13:00] VITALS: BP 135/87; PULSE 63; RESP 19; TEMP 36.9; O2SAT 99
[2019-12-29 13:06] LABS: ALT 39 U/L (14-59); AST 16 U/L (15-37); Albumin 3.6 g/dL (3.4-5.0); Alkaline Phosphatase 86 U/L (46-116); CREATININE 0.65 mg/dL (0.55-1.02); Calculated LDL 182 mg/dL (<100); Cholesterol 235 mg/dL (<200); HDL Cholesterol 44 mg/dL (40-60); TSH 3.93 uIU/mL (0.36-3.74); Triglyceride 46 mg/dL (<150)
[2019-12-29 13:20] LABS: ESR 31 mm/hr (0-20)
[2019-12-29 13:24] LABS: C-Reactive Protein 0.38 mg/dL (0.0-0.3)
[2019-12-29] MEDS: Normal Saline Flush 10 ML SYR IVP (13:26)
[2019-12-29 13:29] VITALS: BP 127/83; PULSE 88; RESP 18; TEMP 36.6; O2SAT 97
== END 2020-01-21 23:59 | disposition home or self-care (01) ==
LOC: INF 02:01
PROVIDERS: Internal Medicine; PCP Family Medicine; Visit Provider Internal Medicine
DX: M32.9 Systemic lupus erythematosus, unspecified (principal); E03.9 Hypothyroidism, unspecified; E78.2 Mixed hyperlipidemia
CPT/HCPCS: 36415; 80061; 85652; 96365; 82040; 82565; 84075; 84443; 84450; 84460; 85025; 86140; J0490

== ENCOUNTER 2020-02-17 03:51 | Outpatient (RCR) | payer MEDICARE, SELFPAY ==
[2020-02-17] MEDS: diphenhydrAMINE 25 MG CAP PO (12:28)
[2020-02-17] MEDS: Acetaminophen 325 MG TAB 650 MG PO (12:28)
[2020-02-17 12:45] VITALS: BP 138/87; PULSE 80; RESP 18; TEMP 37.2; O2SAT 99
[2020-02-17 13:26] VITALS: BP 126/72; PULSE 73; RESP 19; TEMP 36.4; O2SAT 97
[2020-02-17 13:56] VITALS: BP 153/82; PULSE 73; RESP 18; TEMP 36.6; O2SAT 98
[2020-02-17 14:26] VITALS: BP 135/83; PULSE 78; RESP 19; TEMP 36.6; O2SAT 98
== END 2020-02-21 23:59 | disposition home or self-care (01) ==
LOC: INF 03:51
PROVIDERS: PCP Family Medicine; Visit Provider Internal Medicine
DX: M32.9 Systemic lupus erythematosus, unspecified (principal)
CPT/HCPCS: 96365; J0490

== ENCOUNTER 2020-03-21 04:12 | Outpatient (RCR) | payer MEDICARE, SELFPAY ==
[2020-03-21] MEDS: Acetaminophen 325 MG TAB 650 MG PO (12:58)
[2020-03-21] MEDS: diphenhydrAMINE 25 MG CAP PO (12:58)
[2020-03-21 13:00] LABS: Abs Immature Grans 0.01 k/cumm (0.0-0.09); Absolute Basophil Count 0.02 k/cumm (0.0-0.2); Absolute Eosinophil Count 0.09 k/cumm (0.0-0.7); Absolute Monocyte Count 0.58 k/cumm (0.11-0.7); Basophils % 0.3; Eosinophils % 1.3; HCT 39.8 % (36.0-46.0); HGB 13.6 g/dL (12.0-15.5); Immature Grans % 0.1 %; Lymphocytes % 16.7; Mean Corp. HGB Concentration 34.2 g/dL (32.0-36.0); Mean Corpuscular Hemoglobin 28.7 pg (27.0-33.0); Mean Platelet Volume 9.4 fL (8.0-11.0); Monocytes % 8.1; Neutrophils % 73.5; Platelet Count 364 x1000/uL (130-400); RBC 4.74 m/cumm (4.00-5.20)
[2020-03-21] MEDS: Normal Saline Flush 10 ML SYR IVP (13:15)
[2020-03-21 13:27] VITALS: BP 118/78; PULSE 69; RESP 18; TEMP 37; O2SAT 96
[2020-03-21 13:48] LABS: ALT 37 U/L (14-59); AST 19 U/L (15-37); Albumin 3.5 g/dL (3.4-5.0); Alkaline Phosphatase 83 U/L (46-116); C-Reactive Protein 0.54 mg/dL (0.0-0.3); CREATININE 0.71 mg/dL (0.55-1.02)
[2020-03-21 13:57] VITALS: BP 131/85; PULSE 75; RESP 19; TEMP 37; O2SAT 99
[2020-03-21 13:57] LABS: ESR 28 mm/hr (0-20)
== END 2020-03-22 23:59 | disposition home or self-care (01) ==
LOC: INF 04:12
PROVIDERS: Internal Medicine; PCP Family Medicine; Visit Provider Internal Medicine
DX: M32.9 Systemic lupus erythematosus, unspecified (principal)
CPT/HCPCS: 36415; 85652; 96365; 82040; 82565; 84075; 84450; 84460; 85025; 86140; J0490

== ENCOUNTER 2020-04-18 01:56 | Outpatient (RCR) | payer MEDICARE, SELFPAY | END 2020-04-22 23:59 | disposition home or self-care (01) | LOC: INF 01:56 | PROVIDERS: PCP Family Medicine; Visit Provider Internal Medicine | DX: R69 Illness, unspecified (principal) ==

== ENCOUNTER 2020-08-09 01:47 | Outpatient (RCR) | payer MEDICARE, SELFPAY ==
[2020-08-09] MEDS: Acetaminophen 325 MG TAB 650 MG PO (13:22)
[2020-08-09] MEDS: diphenhydrAMINE 25 MG CAP PO (13:22)
[2020-08-09] MEDS: Normal Saline Flush 10 ML SYR IVP (13:25)
[2020-08-09 13:30] VITALS: BP 111/69; PULSE 78; RESP 18; TEMP 36.1; O2SAT 99
[2020-08-09 13:32] LABS: Abs Immature Grans 0.04 10^3/uL (0.0-0.06); Absolute Basophil Count 0.03 10^3/uL (0.0-0.2); Absolute Eosinophil Count 0.11 10^3/uL (0.0-0.7); Absolute Lymphocyte Count 1.24 10^3/uL (1.2-3.4); Absolute Monocyte Count 0.64 10^3/uL (0.1-0.8); Absolute Neutrophil Count 5.42 10^3/uL (1.2-6.7); Basophils % 0.4; Eosinophils % 1.5; HCT 41.9 % (36.0-46.0); HGB 14.1 g/dL (11.2-15.7); Immature Grans % 0.5; Lymphocytes % 16.6; MCH 28.6 pg (27.0-33.0); MCHC 33.7 % (32.0-36.0); MPV 9.1 fL (8.0-11.0); Monocytes % 8.6; Neutrophils % 72.4; Nucleated RBC 0 %; Platelet Count 363 10^3/uL (130-400); RBC 4.93 10^6/uL (3.93-5.22); RDW 12.7 % (11.7-14.6); RDW-SD 39.2 fL; WBC 7.48 10^3/uL (4.4-10.8)
[2020-08-09 13:49] LABS: ALT 31 U/L (14-59); AST 18 U/L (15-37); Albumin 3.5 g/dL (3.4-5.0); Alkaline Phosphatase 87 U/L (46-116); C-Reactive Protein 0.83 mg/dL (0.0-0.3); CREATININE 0.75 mg/dL (0.55-1.02)
[2020-08-09 14:01] LABS: Bilirubin Negative (Negative); Blood Negative (Negative); Clarity Clear (Clear); Glucose Negative (Negative); Ketones Negative (Negative); Leukocyte Esterase Negative (Negative); Nitrite Negative (Negative)
[2020-08-09 14:12] LABS: ESR 45 mm/hr (0-20)
[2020-08-09 14:19] VITALS: BP 118/81; PULSE 76; RESP 19; TEMP 36; O2SAT 99
[2020-08-09 14:48] VITALS: BP 122/77; PULSE 74; RESP 18; TEMP 36; O2SAT 96
[2020-08-09 15:14] VITALS: BP 124/81; PULSE 85; RESP 18; TEMP 36; O2SAT 98
== END 2020-08-22 23:59 | disposition home or self-care (01) ==
LOC: INF 01:47
PROVIDERS: Internal Medicine; PCP Nurse Practitioner Family; Visit Provider Internal Medicine
DX: M32.9 Systemic lupus erythematosus, unspecified (principal)
CPT/HCPCS: 85652; 96365; 81003; 82040; 82565; 84075; 84450; 84460; 85025; 86140; J0490

== ENCOUNTER 2020-09-06 02:13 | Outpatient (RCR) | payer MEDICARE, SELFPAY ==
[2020-09-06] MEDS: Normal Saline Flush 10 ML SYR IVP (13:10)
[2020-09-06] MEDS: Acetaminophen 325 MG TAB 650 MG PO (13:10)
[2020-09-06] MEDS: diphenhydrAMINE 25 MG CAP PO (13:10)
[2020-09-06 13:23] VITALS: BP 124/85; PULSE 88; RESP 19; TEMP 36.2; O2SAT 98
[2020-09-06 14:00] VITALS: BP 136/85; PULSE 88; RESP 18; TEMP 36; O2SAT 98
[2020-09-06 14:30] VITALS: BP 107/68; PULSE 89; RESP 18; TEMP 36; O2SAT 98
[2020-09-06 15:00] VITALS: BP 105/71; PULSE 79; RESP 18; TEMP 36; O2SAT 97
== END 2020-09-22 23:59 | disposition home or self-care (01) ==
LOC: INF 02:13
PROVIDERS: PCP Family Medicine; Visit Provider Internal Medicine
DX: M32.9 Systemic lupus erythematosus, unspecified (principal)
CPT/HCPCS: 36415; 96365; 84439; 84443; J0490

== ENCOUNTER 2020-09-06 15:26 | Outpatient (CLI) | payer MEDICARE, SELFPAY ==
[2020-09-06 17:47] LABS: FREE T4 0.89 ng/dL (0.76-1.46)
== END 2020-09-06 15:46 ==
PROVIDERS: PCP Family Medicine; Visit Provider Family Medicine
DX: E03.9 Hypothyroidism, unspecified (principal)
CPT/HCPCS: 36415; 84439; 84443

== ENCOUNTER 2020-10-15 02:41 | Outpatient (RCR) | payer MEDICARE, SELFPAY ==
[2020-09-23 00:21] VITALS: BP 105/71; PULSE 79; RESP 18; TEMP 36
[2020-10-15] MEDS: Acetaminophen 325 MG TAB 650 MG PO (13:22)
[2020-10-15] MEDS: diphenhydrAMINE 25 MG CAP PO (13:22)
[2020-10-15 13:29] VITALS: BP 126/82; PULSE 89; RESP 19; TEMP 36.9; O2SAT 98
[2020-10-15 13:43] LABS: Abs Immature Grans 0.02 10^3/uL (0.0-0.06); Absolute Basophil Count 0.03 10^3/uL (0.0-0.2); Absolute Eosinophil Count 0.05 10^3/uL (0.0-0.7); Absolute Lymphocyte Count 1.45 10^3/uL (1.2-3.4); Absolute Monocyte Count 0.64 10^3/uL (0.1-0.8); Absolute Neutrophil Count 4.77 10^3/uL (1.2-6.7); Basophils % 0.4; Eosinophils % 0.7; HCT 41.2 % (36.0-46.0); HGB 13.9 g/dL (11.2-15.7); Immature Grans % 0.3; Lymphocytes % 20.8; MCH 28.4 pg (27.0-33.0); MCHC 33.7 % (32.0-36.0); MCV 84.1 fL (80-95); MPV 9.4 fL (8.0-11.0); Monocytes % 9.2; Neutrophils % 68.6; Nucleated RBC 0 %; Platelet Count 366 10^3/uL (130-400); RDW 11.9 % (11.7-14.6); RDW-SD 36.3 fL; WBC 6.96 10^3/uL (4.4-10.8)
[2020-10-15 13:51] LABS: ALT 32 U/L (14-59); AST 19 U/L (15-37); Albumin 3.5 g/dL (3.4-5.0); Alkaline Phosphatase 93 U/L (46-116); CREATININE 0.77 mg/dL (0.55-1.02)
[2020-10-15 14:01] LABS: C-Reactive Protein 0.78 mg/dL (0.0-0.3)
[2020-10-15 14:23] LABS: ESR 38 mm/hr (0-20)
[2020-10-15 15:02] VITALS: BP 102/66; PULSE 80; RESP 18; TEMP 36.7; O2SAT 99
[2020-10-15 15:40] VITALS: BP 126/83; PULSE 77; TEMP 36.6; O2SAT 98
== END 2020-10-22 23:59 | disposition home or self-care (01) ==
LOC: INF 02:41
PROVIDERS: Internal Medicine; PCP Family Medicine; Visit Provider Internal Medicine
DX: M32.9 Systemic lupus erythematosus, unspecified (principal)
CPT/HCPCS: 85652; 96365; 82040; 82565; 84075; 84450; 84460; 85025; 86140; J0490

== ENCOUNTER 2020-11-14 01:47 | Outpatient (RCR) | payer MEDICARE, SELFPAY ==
[2020-10-23 00:15] VITALS: BP 126/83; PULSE 77; RESP 18; TEMP 36.6
[2020-11-14] MEDS: diphenhydrAMINE 25 MG CAP PO (11:13)
[2020-11-14] MEDS: Normal Saline Flush 10 ML SYR IVP (11:14)
[2020-11-14] MEDS: Acetaminophen 325 MG TAB 650 MG PO (11:14)
[2020-11-14 11:39] VITALS: BP 134/84; PULSE 83; RESP 18; TEMP 36.6; O2SAT 100
[2020-11-14 12:16] VITALS: BP 148/89; PULSE 76; RESP 19; TEMP 36.6; O2SAT 98
[2020-11-14 12:47] VITALS: BP 132/84; PULSE 95; RESP 18; TEMP 36.9; O2SAT 99
[2020-11-14 13:17] VITALS: BP 134/84; PULSE 89; RESP 18; TEMP 36.9; O2SAT 98
== END 2020-11-22 23:59 | disposition home or self-care (01) ==
LOC: INF 01:47
PROVIDERS: PCP Family Medicine; Visit Provider Internal Medicine
DX: M32.9 Systemic lupus erythematosus, unspecified (principal)
CPT/HCPCS: 96365; J0490

== ENCOUNTER 2020-12-12 03:28 | Outpatient (RCR) | payer MEDICARE, SELFPAY ==
[2020-11-23 00:16] VITALS: BP 134/84; PULSE 89; RESP 18; TEMP 36.9
[2020-12-12 10:31] VITALS: BP 108/72; PULSE 94; RESP 18; TEMP 36.8; O2SAT 98
[2020-12-12] MEDS: Normal Saline Flush 10 ML SYR IVP (10:31)
[2020-12-12] MEDS: Acetaminophen 325 MG TAB 650 MG PO (10:31)
[2020-12-12] MEDS: diphenhydrAMINE 25 MG CAP PO (10:31)
[2020-12-12 10:45] LABS: Abs Immature Grans 0.01 10^3/uL (0.0-0.06); Absolute Basophil Count 0.05 10^3/uL (0.0-0.2); Absolute Eosinophil Count 0.07 10^3/uL (0.0-0.7); Absolute Lymphocyte Count 1.35 10^3/uL (1.2-3.4); Absolute Neutrophil Count 4.87 10^3/uL (1.2-6.7); Basophils % 0.7; HCT 43.5 % (36.0-46.0); HGB 14.6 g/dL (11.2-15.7); Immature Grans % 0.1; Lymphocytes % 19.7; MCH 28.1 pg (27.0-33.0); MCHC 33.6 % (32.0-36.0); MCV 83.7 fL (80-95); MPV 9.2 fL (8.0-11.0); Monocytes % 7.3; Neutrophils % 71.2; Nucleated RBC 0 %; Platelet Count 331 10^3/uL (130-400); RDW 11.8 % (11.7-14.6); RDW-SD 35.5 fL; WBC 6.85 10^3/uL (4.4-10.8)
[2020-12-12 10:50] LABS: ALT 34 U/L (14-59); AST 19 U/L (15-37); Albumin 3.5 g/dL (3.4-5.0); Alkaline Phosphatase 88 U/L (46-116); C-Reactive Protein 0.33 mg/dL (0.0-0.3); CREATININE 0.92 mg/dL (0.55-1.02)
[2020-12-12 11:15] VITALS: BP 108/72; PULSE 96; RESP 18; TEMP 37.4; O2SAT 97
[2020-12-12 11:45] VITALS: BP 117/74; PULSE 86; RESP 18; TEMP 37.4; O2SAT 99
[2020-12-12 11:52] LABS: ESR 26 mm/hr (0-20)
[2020-12-12 12:15] VITALS: BP 108/66; PULSE 94; RESP 18; TEMP 37.4; O2SAT 99
== END 2020-12-23 23:59 | disposition home or self-care (01) ==
LOC: INF 03:28
PROVIDERS: PCP Family Medicine; Visit Provider Internal Medicine
DX: M32.9 Systemic lupus erythematosus, unspecified (principal)
CPT/HCPCS: 36415; 85652; 96365; 82040; 82565; 84075; 84450; 84460; 85025; 86140; J0490

== ENCOUNTER 2021-01-10 09:48 | Outpatient (CLI) | payer MEDICARE, SELFPAY ==
--- NOTE | 2021-01-10 09:45 | DI.RAD_ITS ---
EXAM: XR SHOULDER RT COMPLETE 2+V CLINICAL HISTORY: R shoulder pain. TECHNIQUE: 2D digital imaging was performed. COMPARISON: CR RIGHT SHOULDER COMPLETE from 05/07/2011 FINDINGS: There is no evidence of fracture or dislocation no abnormal soft tissue calcifications. Subacromial space exhibits normal height. AC joint and glenohumeral joint appear unremarkable. No os acromiale. Bone density is normal. IMPRESSION: DATA REPOSITORY: RADIATION DOSE DELIVERED:
--- NOTE | 2021-01-10 09:45 | DI.RAD_ITS ---
EXAM: XR KNEE LT 3V AP,LAT,MONTY CLINICAL HISTORY: L knee pain. TECHNIQUE: 2D digital imaging was performed. COMPARISON: CR LEFT KNEE LIMITED 1 OR 2 VIEWS from 05/20/2011 FINDINGS: There is no evidence fracture or prominent joint effusion. However, there is significant degenerativ e changes which progressed from 2011. There are now advanced osteoarthritic degenerative changes wit h [id number] apposition in the lateral compartment and prominent tricompartmental osteophytes. The re are also calcified loose intra-articular bodies. The largest of these is located posteriorly and measures 1.8 x 1.5 cm, these not evident on the prior radiographs performed in 2010. There are no om inous osseous lesions. IMPRESSION: Significant advancement of true osteoarthritic degenerative changes in the left hip when compared to 2011. Also loose intra-articular calcified bodies now evident as described above DATA REPOSITORY: RADIATION DOSE DELIVERED:
== END 2021-01-10 09:49 | disposition home or self-care (01) ==
LOC: DIORS 09:48
PROVIDERS: PCP Family Medicine; Referring Provider Family Medicine; Visit Provider Student in an Organized Health Care Education/Training Program
DX: M25.562 Pain in left knee (principal); M17.12 Unilateral primary osteoarthritis, left knee; M25.511 Pain in right shoulder; M75.51 Bursitis of right shoulder; M25.571 Pain in right ankle and joints of right foot
CPT/HCPCS: 20610; 73562; 99214; 73030; J1040

== ENCOUNTER 2021-01-14 02:40 | Outpatient (RCR) | payer MEDICARE, SELFPAY ==
[2020-12-24 00:15] VITALS: BP 108/66; PULSE 94; RESP 18; TEMP 37.4
[2021-01-14] MEDS: Acetaminophen 325 MG TAB 650 MG PO (11:23)
[2021-01-14] MEDS: Normal Saline Flush 10 ML SYR IVP (11:24)
[2021-01-14] MEDS: diphenhydrAMINE 25 MG CAP PO (11:24)
[2021-01-14 11:26] VITALS: BP 141/86; PULSE 80; RESP 18; TEMP 37.4; O2SAT 98
== END 2021-01-20 23:59 | disposition home or self-care (01) ==
LOC: INF 02:40
PROVIDERS: PCP Family Medicine; Visit Provider Internal Medicine
DX: M32.9 Systemic lupus erythematosus, unspecified (principal)
CPT/HCPCS: 96365; J0490

== ENCOUNTER → 2021-01-18 04:00 | Outpatient (CLI) | payer MEDICARE, SELFPAY ==
--- NOTE | 2021-01-18 11:50 | DI.MRI_ITS ---
EXAM: MR UPPER JOINT RT WO CLINICAL HISTORY: RT SHOULDER PAIN, BURSITIS, M75.51,M25.511. TECHNIQUE: Multiplanar multisequence MRI was performed. COMPARISON: None. FINDINGS: The AC joint is unremarkable. There is a small glenohumeral joint effusion. There is a trace amount of edema in the subacromial subdeltoid bursa. This could indicate bursitis. There is mild thickeni ng of the anterior superior aspect of the and infraspinatus tendon but no visible focal tear. The mcknight praspinatus tendon, subscapularis, biceps and teres minor tendons appear intact. No labral defect is seen. There is no significant muscle atrophy. The marrow signal is normal. IMPRESSION: Infraspinatus tendinosis and mild subacromial subdeltoid bursitis. DATA REPOSITORY:
== END ==
PROVIDERS: PCP Family Medicine; Visit Provider Student in an Organized Health Care Education/Training Program
DX: M25.511 Pain in right shoulder (principal); M75.51 Bursitis of right shoulder; M75.81 Other shoulder lesions, right shoulder
CPT/HCPCS: 73221

== ENCOUNTER 2021-01-28 15:27 | Outpatient (CLI) | payer MEDICARE, SELFPAY ==
--- NOTE | 2021-01-28 15:00 | DI.RAD_ITS ---
EXAM: XR ANKLE RT COMPLETE INDICATION: right ankle pain. COMPARISON: MR MRI R LOWER JOINT WO CONT from 12/28/2012 TECHNIQUE: 2D digital imaging was performed. FINDINGS: There is spurring at the anterior aspect of the distal tibia. There is mild spurring at the tip of b oth malleoli. No talar dome defect is seen. There is spurring at the dorsal navicular cuneiform ez nt. The plantar arch is well maintained. IMPRESSION: Mild degenerative changes. DATA REPOSITORY: RADIATION DOSE DELIVERED:
== END 2021-01-28 15:28 | disposition home or self-care (01) ==
LOC: DIORS 15:27
PROVIDERS: PCP Family Medicine; Referring Provider Family Medicine; Visit Provider Student in an Organized Health Care Education/Training Program
DX: M19.071 Primary osteoarthritis, right ankle and foot (principal); M25.571 Pain in right ankle and joints of right foot; M75.51 Bursitis of right shoulder; M67.88 Other specified disorders of synovium and tendon, other site; M62.89 Other specified disorders of muscle
CPT/HCPCS: 99213; 73610

== ENCOUNTER 2021-02-15 04:44 | Outpatient (RCR) | payer MEDICARE, SELFPAY ==
[2021-01-21 00:17] VITALS: BP 141/86; PULSE 80; RESP 18; TEMP 37.4
[2021-02-15 07:26] LABS: Abs Immature Grans 0.02 10^3/uL (0.0-0.06); Absolute Basophil Count 0.06 10^3/uL (0.0-0.2); Absolute Eosinophil Count 0.11 10^3/uL (0.0-0.7); Absolute Lymphocyte Count 1.97 10^3/uL (1.2-3.4); Absolute Monocyte Count 0.73 10^3/uL (0.1-0.8); Absolute Neutrophil Count 4.88 10^3/uL (1.2-6.7); Basophils % 0.8; Eosinophils % 1.4; HCT 39.3 % (36.0-46.0); HGB 13.1 g/dL (11.2-15.7); Immature Grans % 0.3; Lymphocytes % 25.4; MCH 28.4 pg (27.0-33.0); MCHC 33.3 % (32.0-36.0); MCV 85.2 fL (80-95); MPV 9.6 fL (8.0-11.0); Monocytes % 9.4; Neutrophils % 62.7; Nucleated RBC 0 %; Platelet Count 326 10^3/uL (130-400); RBC 4.61 10^6/uL (3.93-5.22); RDW-SD 40.1 fL; WBC 7.77 10^3/uL (4.4-10.8)
[2021-02-15] MEDS: Acetaminophen 325 MG TAB 650 MG PO (07:37)
[2021-02-15] MEDS: diphenhydrAMINE 25 MG CAP (07:37)
[2021-02-15 07:45] LABS: ALT 43 U/L (14-59); AST 21 U/L (15-37); Albumin 3.3 g/dL (3.4-5.0); Alkaline Phosphatase 94 U/L (46-116); C-Reactive Protein 0.51 mg/dL (0.0-0.3); CREATININE 0.9 mg/dL (0.55-1.02)
[2021-02-15 08:33] VITALS: BP 121/79; PULSE 76; RESP 20; TEMP 36.7; O2SAT 99
[2021-02-15] MEDS: Normal Saline Flush 10 ML SYR IVP (08:33)
[2021-02-15 09:04] VITALS: BP 122/81; PULSE 70; RESP 20; TEMP 36.7; O2SAT 100
[2021-02-15 09:35] VITALS: BP 116/75; PULSE 78; RESP 17; TEMP 36.7; O2SAT 100
[2021-02-15 11:46] LABS: ESR 43 mm/hr (<or=20)
== END 2021-02-20 23:59 | disposition home or self-care (01) ==
LOC: INF 04:44
PROVIDERS: Internal Medicine Rheumatology; PCP Family Medicine; Visit Provider Internal Medicine
DX: M32.9 Systemic lupus erythematosus, unspecified (principal)
CPT/HCPCS: 36415; 85652; 96365; 82040; 82565; 84075; 84450; 84460; 85025; 86140; J0490

== ENCOUNTER 2022-11-07 14:33 | Outpatient (CLI) | payer MEDICAID, SELFPAY ==
--- OUTSIDE RECORDS SUMMARY | 2022-11-07 14:37 | XMS_ITS ---
:[address] [facility] Otolaryngology Address [address], [place] [id number] Care Team Providers Name Role Phone Will Gonzalez Unavailable Unavailable PROBLEMS Type Condition ICD9-CM Code [id number] Code Onset Dates Condition S tatus SNOMED Code Problem Rhytides L98.8 Active [id number] ALLERGIES No Known Allergies ENCOUNTERS Encounter Location Date Diagnosis [address] Jul, Otolaryngology [address] [place], [place] [id number] [place] [address] Jul, Otolaryngology [address] [place] [id number] Jul, [place] [address] [place] [id number] Sep, [place] [address] [place] [id number] Sep, Otolaryngology [address] [place], [place] [id number] [address] Sep, Otolaryngology [address] [place], [place] [id number] [address] Sep, [place]yt[place] L [address] [place] [id number] Aug, Otolaryngology [address] [place], [place] [id number] [address], Apr, Rhytid es L98.8 [facility] [address] [place], [place] [id number] [address] Apr, Otolaryngology [address] [place], [place] [id number] [address] March, [place]ytides L 98.[address] Ot[address] [address] [place], [place] [id number] [address] March, Otolaryngology [address] [place], [place] [id number] [address], Oct, [facility]yt[facility] es L98[facility]8 [facility] [address] [place] [id number] [address] Oct, Otolaryngology [address] [place] [id number] [address], Oct, [facility]yt[facility] es L98[facility]8 [facility] [address] [place], [place] [phone] [address] Dec, Encounter f or other Healthcare [address] [place], [place] admin [facility] [id number] examinations Z 02.89 IMMUNIZATIONS No Known Immunizations SOCIAL HISTORY Never Assessed REASON FOR REFERRAL FUNCTIONAL STATUS PLAN OF CARE VITAL SIGNS MEDICATIONS Unknown Medications PROCEDURES Procedure Date Ordered Result Body Site DYSPORT/BOTOX FIRST SEGMENT Nov 05, 2020 FACIAL FILLERS (Restylane, Juvederm UltraPlus) Nov 12, 2020 DYSPORT/BOTOX FIRST SEGMENT April 19, 2021 DYSPORT/BOTOX FIRST SEGMENT Aug 08, 2022 DYSPORT/BOTOX SECOND SEGMENT Nov 05, 2020 FACIAL FILLERS (Restylane, Juvederm UltraPlus) Aug 08, 2022 OCD Urine Drug Screen (collection only) Dec 28, 2019 DYSPORT/BOTOX SECOND SEGMENT Aug 08, 2022 FACIAL FILLERS (Restylane, Juvederm UltraPlus) Oct 21, 2021 FACIAL FILLERS (Restylane, Juvederm UltraPlus) Sep 23, 2021 DYSPORT/BOTOX FIRST SEGMENT Sep 23, 2021 FACIAL FILLERS (Restylane, Juvederm UltraPlus) Sep 23, 2021 FACIAL FILLERS (Restylane, Juvederm UltraPlus) April 19, 2021 MISC PROCEDURE May 06, 2021 FACIAL FILLERS (Restylane, Juvederm UltraPlus) Aug 08, 2022 MISC PROCEDURE April 19, 2021 RESULTS Name Result Date Reference Range OCD URINE COLLECTION 2019-12-28 REASON FOR VISIT C botox- touch up, Botox, touch up , Mail OV note, ENT-Lip filler, botox?, ENT- FILLER, c botox touch up, botox, Fillers (Ok per VB), appt., ENT Cosmetic BT touch up, touch up, ENT botox possible filler, ENT fillers per VB, botox/fillers, Cosmetic BT, OCC udc , ENT botox Insurance Providers [facility] Health Member Patient Patient Patient Patient Patient Subscriber Subscriber Subscriber Group Insurance Plan Plan Plan Plan ID Relationship Address Phone Name Date of ID Name Date of No Type Insurance Insurance Insurance Coverage to Subscriber Address Phone Name Dates OCD - [id number] [phone] OCD - self Keely [id number] Kirit Heck [facility] [id number] [facility] - [address] [place] [address]/[facility] - self Keely 1975 DO ANGELA Padron (Pamela ESPARZA (Write Off) [id number] Off)
[2022-11-10 11:05] LABS: Measles IgG Antibody Positive (See Note); Mumps Antibody IgG Negative (See Note); Rubella IgG Ab (UVM) Negative (See Note)
== END 2022-11-07 14:34 | disposition home or self-care (01) ==
LOC: LBO 14:36
PROVIDERS: PCP Family Medicine; Visit Provider Family Medicine
DX: Z11.59 Encounter for screening for other viral diseases (principal)
CPT/HCPCS: 36415; 86735; 86762; 86765

== ENCOUNTER 2023-12-21 09:41 | Outpatient (CLI) | payer MEDICAID, SELFPAY ==
[2023-12-21 09:27] LABS: HCT 41.7 % (36.0-46.0); HGB 14.5 g/dL (11.2-15.7); MCH 28.9 pg (27.0-33.0); MCHC 34.8 % (32.0-36.0); MCV 83 fL (80-95); MPV 9.5 fL (8.0-11.0); Platelet Count 318 10^3/uL (130-400); RBC 5.02 10^6/uL (3.93-5.22); RDW 12.5 % (11.7-14.6); RDW-SD 37.9 fL; WBC 6.18 10^3/uL (4.4-10.8)
[2023-12-21 10:20] LABS: ALT 28 U/L (14-59); AST 17 U/L (15-37); Albumin 3.3 g/dL (3.4-5.0); Alkaline Phosphatase 86 U/L (46-116); Anion Gap 8.5 mmol/L (3-11); BUN 9 mg/dL (7-18); Bilirubin, Total 0.5 mg/dL (0.2-1.0); CO2 29.5 mmol/L (21.0-32.0); CREATININE 0.6 mg/dL (0.55-1.02); Calcium 9.3 mg/dL (8.5-10.1); Chloride 104 mmol/L (98-107); Estimated GFR 109.28 (mL/min/1.73m2); Glucose 89 mg/dL (74-106); Potassium 3.2 mmol/L (3.5-5.1); Sodium 142 mmol/L (136-145); TSH (W/Ref FT4) 3.23 uIU/mL (0.36-3.74); Total Protein 7.3 g/dL (6.4-8.2)
[2023-12-21 11:02] LABS: Iron 112 ug/dL (50-170)
[2023-12-21 11:06] LABS: Calculated LDL 150 mg/dL (<100); Cholesterol 205 mg/dL (<200); HDL Cholesterol 42 mg/dL (40-60); Triglyceride 66 mg/dL (<150)
[2023-12-21 11:21] LABS: Hemoglobin A1C 5.5 % (<5.7)
[2023-12-21 11:25] LABS: Vitamin D 25 Total 69.9 ng/mL (30-100)
== END 2023-12-21 09:42 | disposition home or self-care (01) ==
LOC: LBO 09:41
PROVIDERS: PCP Family Medicine; Visit Provider Nurse Practitioner Family
DX: Z00.00 Encounter for general adult medical examination without abnormal findings (principal); D64.9 Anemia, unspecified; G40.909 Epilepsy, unspecified, not intractable, without status epilepticus
CPT/HCPCS: 36415; 80053; 80061; 82306; 85027; 83036; 83540; 84443

== ENCOUNTER 2024-03-14 20:56 | Outpatient (REF) | payer MEDICAID, SELFPAY ==
[2024-03-14 21:52] LABS: *AMPHETAMINES SCREEN URINE Negative (Negative); *BARBITURATES SCREEN URINE Negative (Negative); *BENZODIAZEPINES SCREEN URINE Negative (Negative); Cannabinoids THC Positive (Negative); Cocaine Screen,Urine Negative (Negative); METHADONE URINE SCREEN Negative (Negative); OPIATES URINE SCREEN Positive (Negative)
[2024-03-14 21:53] LABS: Tricyclic Antidepressants Negative (Negative)
== END 2024-03-14 20:57 | disposition home or self-care (01) ==
LOC: LBN 20:56
PROVIDERS: PCP Family Medicine; Visit Provider Family Medicine
DX: F11.90 Opioid use, unspecified, uncomplicated (principal)
CPT/HCPCS: 80307

== ENCOUNTER → 2024-05-30 02:51 | Outpatient (CLI) | payer MEDICAID, SELFPAY ==
--- NOTE | 2024-05-30 07:30 | DI.MAMMO_ITS ---
Exam(s) MAMMO SCREENING EXAM: MAMMO SCREENING CLINICAL HISTORY: screening,z12.39 TECHNIQUE: Mammograms were interpreted according to the usual protocol including computer analysis w [employer] CAD system, tomosynthesis and C-view imaging. COMPARISON: 2018 FINDINGS: The breasts are composed of scattered fibroglandular densities, Breast Density category B. No suspicious masses or suspicious microcalcifications are seen. No skin thickening or abnormal axillary lymph nodes are seen. There has been no significant change from prior exams. IMPRESSION: BI-RADS Category 1, Negative mammogram Yearly screening mammography is recommended. Breast Density - Category B, scattered fibroglandular densities. A negative radiographic report should not delay biopsy if a dominant or clinically suspicious mass is present. Up to ten percent of cancers are not identified on mammography. A negative report may reinforce clinical impression. Adenosis and dense breasts may obscure an underlying neoplasm. False positive reports average 6 to 10%. Patient will receive a letter notifying them of these results.
--- NOTE | 2024-05-30 12:30 | DI.RAD_ITS ---
Exam(s) XR THORACIC SPINE COMPLETE EXAM: XR THORACIC SPINE COMPLETE CLINICAL HISTORY: continued pain,dorsalgina, back pain,m54.9. TECHNIQUE: 2D digital imaging was performed. Three views. COMPARISON: MR MRI - CERVICAL SPINE WO CONT from 03/31/2012 CR XR CERVICAL SPINE COMP 4-5V from 05/30/2024 FINDINGS: BONES: There is no acute fracture or destructive lesion. Mild loss of disc height at T3 which appears unchanged from prior MRI. ALIGNMENT: Within normal limits. No scoliosis. DISKS:This space narrowing periarticular spurring noted at T11-12. Minimal disc space narrowing at m ore superior levels, greater anteriorly with there are small endplate osteophytes. Interverebral dis c spaces are maintained. SOFT TISSUE: Visualized lungs are clear. surgical clips and suture material in the left upper quad rant. IMPRESSION: Stable mild T3 compression fracture. Degenerative disc changes greatest at T11-12. DATA REPOSITORY: RADIATION DOSE DELIVERED:
--- NOTE | 2024-05-30 12:35 | DI.RAD_ITS ---
Exam(s) XR LUMBAR SPINE COMPLETE EXAM: XR LUMBAR SPINE COMPLETE CLINICAL HISTORY: continued back pain due to injury,m54.9. TECHNIQUE: 2D digital imaging was performed. Five views. COMPARISON: No exams were available for comparison FINDINGS: BONES: No fracture or destructive lesion. Vertebral body heights are maintained. Prominent facet hyp ertrophy identified at L 4 5, causing mild retrolisthesis.. No scoliosis. DISKS: Disc space narrowing and periarticular endplate osteophytes present at T11-12. Mild narrowing of the L4-5 disc space. Mild narrowing of the L5-S1 disc space. The remaining intervertebral disc spaces are maintained. SOFT TISSUE: Normal. IMPRESSION: degenerative changes of the facet joints at L4-5 cause mild spondylolisthesis. Mild narrowing of the L4-5 and L5-S1 disc spaces. More severe disc space narrowing at T11-12. DATA REPOSITORY: RADIATION DOSE DELIVERED:
--- NOTE | 2024-05-30 12:36 | DI.RAD_ITS ---
Exam(s) XR SHOULDER RT COMPLETE 2+V EXAM: XR SHOULDER RT COMPLETE 2+V CLINICAL HISTORY: increased pain rt shoulder,m25.511. TECHNIQUE: 2D digital imaging was performed. Five views. COMPARISON: MR MR UPPER JOINT RT WO from 01/18/2021 FINDINGS: BONES: No acute fracture is present. No bony destructive lesion is seen. JOINTS: No dislocation present. AC joint appears normal. There is minimal spurring at the glenoid. The glenohumeral joint space is maintained. SOFT TISSUE: Normal. IMPRESSION: Minimal degenerative changes. DATA REPOSITORY: RADIATION DOSE DELIVERED:
--- NOTE | 2024-05-30 13:00 | DI.RAD_ITS ---
Exam(s) XR CERVICAL SPINE COMP 4-5V EXAM: XR CERVICAL SPINE COMP 4-5V CLINICAL HISTORY: continued pain due to injury,. TECHNIQUE: 2D digital imaging was performed. Five views were performed. COMPARISON: No exams were available for comparison FINDINGS: BONES: No fracture or destructive lesion. Vertebral bodies are unremarkable. Facet degenerative luis nges noted at C4-5 and C5-6 causing mild neural foraminal encroachment. DISKS: Intervertebral disc spaces are maintained. ALIGNMENT: Cervical spinal alignment is within normal limits. The odontoid and atlantoaxial articulat ions are normal. SOFT TISSUE: Normal. The lung apices are clear. IMPRESSION: Mild neural foraminal encroachment at C4-5 and C5-6 secondary to facet spurring. DATA REPOSITORY: RADIATION DOSE DELIVERED:
--- NOTE | 2024-05-30 13:10 | DI.RAD_ITS ---
Exam(s) XR HIP RT COMPLETE AP PELVIS EXAM: XR HIP RT COMPLETE AP PELVIS CLINICAL HISTORY: Right hip pain, M25.551. TECHNIQUE: 2D digital imaging was performed. Three views COMPARISON: MR MRI - CERVICAL SPINE WO CONT from 03/31/2012 FINDINGS: BONES: No acute fracture is present. No bony destructive lesion is seen. JOINTS: No dislocation present. Hip joint spaces are maintained. Minimal periarticular spurring. Mi nimal spurring at the SI joints. SOFT TISSUE: Normal. IMPRESSION: No acute abnormality. Minimal degenerative changes. DATA REPOSITORY: RADIATION DOSE DELIVERED:
== END ==
PROVIDERS: PCP Family Medicine; Visit Provider Nurse Practitioner Family
DX: M25.511 Pain in right shoulder (principal); M19.011 Primary osteoarthritis, right shoulder; M54.2 Cervicalgia; M47.812 Spondylosis without myelopathy or radiculopathy, cervical region; M54.6 Pain in thoracic spine; M51.34 Other intervertebral disc degeneration, thoracic region; M54.59 Other low back pain; M47.816 Spondylosis without myelopathy or radiculopathy, lumbar region; M43.16 Spondylolisthesis, lumbar region; M51.37 Other intervertebral disc degeneration, lumbosacral region; M25.551 Pain in right hip; M16.11 Unilateral primary osteoarthritis, right hip; Z12.31 Encounter for screening mammogram for malignant neoplasm of breast
CPT/HCPCS: 77063; 77067; 72050; 72072; 72110; 73030; 73502

== ENCOUNTER → 2024-05-30 11:11 | Outpatient (CLI) | payer MEDICAID, SELFPAY | PROVIDERS: PCP Nurse Practitioner Family; Visit Provider Nurse Practitioner Family | DX: Z12.31 Encounter for screening mammogram for malignant neoplasm of breast (principal); R92.323 Mammographic fibroglandular density, bilateral breasts | CPT/HCPCS: 77063; 77067 ==

== ENCOUNTER 2024-05-30 13:56 | Outpatient (CLI) | payer MEDICAID, SELFPAY ==
[2024-05-31 09:41] LABS: Hepatitis B Surface Ag Negative (Negative)
[2024-05-31 10:10] LABS: HIV-1/2 Ag & Ab Screen Negative (Negative)
[2024-05-31 10:35] LABS: Hepatitis C Ab w Rflx HCV PCR Negative (Negative)
[2024-06-08 15:49] LABS: Syphilis IgG w/Reflex Nonreactive (Nonreactive)
== END 2024-05-30 13:57 | disposition home or self-care (01) ==
LOC: LBO 06-08 13:56
PROVIDERS: PCP Family Medicine; Visit Provider Advanced Practice Midwife
DX: Z11.3 Encounter for screening for infections with a predominantly sexual mode of transmission (principal)
CPT/HCPCS: 36415; 86803; 87340; 87389; 86780

== ENCOUNTER 2024-05-30 17:44 | Outpatient (REF) | payer MEDICAID, SELFPAY ==
--- NOTE | 2024-05-30 14:00 | PAPFT_PTH ---
PATIENT: Keely Bledsoe LOC: [facility] U#:[id number] AGE/SX: 49/F ROOM: RE05/30/[address]: Stephanie Atkins CNM : 1975 BED: DIS: 05/30/2024 SPEC #: [id number] RECD: 05/30/24 18:33 STATUS: MARKY REQ #: [id number] SAUL: 05/30/24 14:[address]: Stephanie Atkins DEPT: [facility] Cytology RECD BY: Annabelle Mendoza ENTERED: 05/30/24 18:33 SP TYPE: PAPFT MURIEL DR: Jeffery Little MD Tissues: 1 - CX/ENDOCX FOR PAP SMEARS Procedures: PAP THIN PREP/UVM Screening HPV DNA PROBE Comments: [id number] (HPV 16 & 18/45) (CHLAMYDIA/GC)
[2024-05-31 13:23] LABS: Chlamydia Result Negative (Negative); GC Result Negative (Negative)
== END 2024-05-30 17:45 | disposition home or self-care (01) ==
LOC: LBN 17:44
PROVIDERS: PCP Family Medicine; Visit Provider Advanced Practice Midwife
DX: Z12.4 Encounter for screening for malignant neoplasm of cervix (principal)
CPT/HCPCS: 87491; 87591; 88142; 87624

== ENCOUNTER 2024-07-07 03:29 | Outpatient (CLI) | payer MEDICAID, SELFPAY ==
--- NOTE | 2024-07-07 05:45 | DI.MRI_ITS ---
Exam(s) MR CERVICAL SPINE WO EXAM: MR CERVICAL SPINE WO CLINICAL HISTORY: no known injury,comp fx, w22.000a TECHNIQUE: Multiplanar multisequence MRI of the cervical spine was performed without intravenous con trast. COMPARISON: MR MRI - CERVICAL SPINE WO CONT from 03/31/2012 FINDINGS: BONES: Vertebral body heights are maintained. Intervertebral disc spaces are normal. Alignment is nor mal. Mild degenerative endplate signal changes are seen in the mid cervical spine. No findings to mcknight ggest a cervical spine fracture. CERVICAL CORD: Craniovertebral junction is unremarkable. The cervical cord is normal size and signal intensity. SOFT TISSUES: Incidental note is made of a partially empty sella. C2-3: No disc herniation or bulge is identified. No significant central spinal canal or neural forami nal stenosis. C3-4: No disc herniation or bulge is identified. No significant central spinal canal or neural forami nal stenosis C4-5: No disc herniation or bulge is identified. No significant central spinal canal or neural forami nal stenosis C5-6: No disc herniation or bulge is identified. No significant central spinal canal or neural forami nal stenosis C6-7: No disc herniation or bulge is identified. No significant central spinal canal or neural forami nal stenosis C7-T1: No disc herniation or bulge is identified. No significant central spinal canal or neural leslee inal stenosis IMPRESSION: 1. No evidence of a cervical spine fracture. 2. Minimal degenerative changes seen in the cervical spine. No focal disc herniation, central spinal canal or neural foraminal stenosis is present. 3. Incidental note is made of a partially empty sella. DATA REPOSITORY:
--- NOTE | 2024-07-07 05:45 | DI.MRI_ITS ---
Exam(s) MR THORACIC SPINE WO EXAM: MR THORACIC SPINE WO CLINICAL HISTORY: unknown injury,comp fx,s22.000a. TECHNIQUE: Multiplanar multisequence MRI of the Thoracic spine was performed. COMPARISON: MR MRI - CERVICAL SPINE WO CONT from 03/31/2012 CR XR THORACIC SPINE COMPLETE from 05/30/2024 FINDINGS: Bones: There is stable superior compression of the T3 vertebral body. This is unchanged compared to the MRI of the cervical spine from 2012. No evidence of an acute fracture. Alignment is satisfactor y. Mild degenerative endplate signal changes are seen at the T11-T12 disc space which is also narrowe d. Cord: The thoracic cord is normal size and signal intensity. No intrinsic cord lesion is present. Discs: There is a mild diffuse disc bulge at T10-T11 but no central spinal canal or neural foraminal stenosis results. There is a small central disc herniation at the T3-T4 but no significant central s ele canal or neural foraminal stenosis results. Soft tissues: Normal. IMPRESSION: 1. No evidence of an acute fracture. 2. Stable superior compression deformity of T3. This is unchanged dating back to 2011. 3. Degenerative changes in the thoracic spine as described above. DATA REPOSITORY:
--- NOTE | 2024-07-07 05:45 | DI.MRI_ITS ---
Exam(s) MR LUMBAR SPINE WO EXAM: MR LUMBAR SPINE WO CLINICAL HISTORY: no known injury,comp fx 222,000a. TECHNIQUE: Multiplanar multisequence MRI of the Lumbar spine was performed. COMPARISON: No exams were available for comparison FINDINGS: Bones: The last intervertebral disc space is designated the L5/S1 level for the numbering purpose of this examination. The vertebral body heights are well maintained. Alignment is satisfactory. There are mild degenerative endplate signal changes seen at L5-S1. No evidence of a fracture in the lumbar spine. Cord: The conus tip ends at the T12 level. It is of normal size and signal intensity. T12-L1: No disc herniations or bulges are present. No central spinal canal or neural foraminal stenos is. L1-2: No disc herniations or bulges are present. No central spinal canal or neural foraminal stenosis . L2-3: No disc herniations or bulges are present. No central spinal canal or neural foraminal stenosi s. L3-4: No disc herniations or bulges are present. There are degenerative changes of the facets. This does result in mild narrowing of the central spinal canal. There is also mild right neural foraminal narrowing. No significant left neural foraminal stenosis. L4-5: There is a mild diffuse disc bulge. There are degenerative changes of the facets and hypertrop hy of the ligamentum flavum. There is mild narrowing of the central spinal canal. There is minimal narrowing of the neural foramen bilaterally. L5-S1: There is a small central disc herniation. There are mild degenerative changes of the facets. No significant central spinal canal or neural foraminal stenosis is present. Soft tissues: The visualized SI joints and sacrum are well maintained. The paraspinal soft tissues ar e unremarkable. Visualized abdominal organs: There is a 3.5 x 3.9 cm left adnexal cyst. There is a nodule seen in th e wall of the cyst. This is best appreciated on image 4 on the T1 coronal images. This is incomplet varun imaged on this examination. IMPRESSION: 1. No evidence of an acute fracture. 2. Multilevel degenerative changes in the lumbar spine resulting in central spinal canal neural leslee inal narrowing as described above. 3. 3.5 x 3.9 cm complex left adnexal cyst. Further evaluation with ultrasound is recommended. Alter natively, an MRI of the pelvis without and with contrast may be obtained. Unexpected findings DATA REPOSITORY:
== END 2024-07-07 03:49 ==
PROVIDERS: PCP Nurse Practitioner Family; Visit Provider Nurse Practitioner Family
DX: M51.35 Other intervertebral disc degeneration, thoracolumbar region (principal)
CPT/HCPCS: 72141; 72146; 72148

== ENCOUNTER 2024-07-07 08:50 | Outpatient (CLI) | payer MEDICAID, SELFPAY ==
--- NOTE | 2024-07-07 05:45 | DI.DEXA_ITS ---
Exam(s) XR DEXA BONE DENSITY W/WO ROB EXAM: XR DEXA BONE DENSITY W/WO ROB CLINICAL HISTORY: Fx of thoracic spine,screening for osteoporosis, z78.0 TECHNIQUE: COMPARISON: No exams were available for comparison FINDINGS: Lateral Spine Image: Unremarkable. No compression deformities identified. Left hip: Total T-Score: 0.7 Total Z-Score: 1.2 T- and Z-scores: Within normal limits. Lumbar Spine: Total T-Score: 0.7 Total Z-Score: 1.5 T- and Z-scores: Within normal limits. IMPRESSION: No evidence of osteoporosis.
== END 2024-07-07 09:10 ==
LOC: DI 08:50
PROVIDERS: PCP Nurse Practitioner Family; Visit Provider Nurse Practitioner Family
DX: Z78.0 Asymptomatic menopausal state (principal); Z13.820 Encounter for screening for osteoporosis
CPT/HCPCS: 77080

== ENCOUNTER 2024-07-19 02:26 | Outpatient (CLI) | payer MEDICAID, SELFPAY ==
--- NOTE | 2024-07-19 07:45 | DI.MRI_ITS ---
Exam(s) MR UPPER JOINT RT WO EXAM: MR UPPER JOINT RT WO CLINICAL HISTORY: R SHOULDER INJURY,rt rotator cuff tear, m75.101. TECHNIQUE: Multiplanar multisequence MRI was performed. COMPARISON: None. FINDINGS: BONES: There is no fracture or contusion pattern. JOINTS:The acromioclavicular joint shows minimal degenerative changes without significant spurring. Mild spurring at the tip of the acromion. The glenohumeral joint shows a small amount of fluid. TENDONS: Supraspinatus: Thickening and high signal in the distal supraspinatus tendon. Focal linear area of h igh-signal distally consistent with partial tear. Infraspinatus: Unremarkable. Subscapularis: Unremarkable. Teres Minor: Unremarkable. Biceps and Carbon: Unremarkable. MUSCLES: Unremarkable. GLENOID LABRUM: Unremarkable on this noncontrast examination. SOFT TISSUES: Unremarkable. OTHER: Subacromial and subdeltoid bursae shows a minimal amount of fluid.. IMPRESSION: Supraspinatus tendinosis with small focal partial tear distally. Small joint effusion. DATA REPOSITORY:
--- NOTE | 2024-07-19 07:59 | DI.MRI_ITS ---
Exam(s) MR LOWER JOINT RT WO EXAM: MR LOWER JOINT RT WO CLINICAL HISTORY: rt hip pain,m25.551 TECHNIQUE: Multiplanar multisequence MRI of Pelvis was performed COMPARISON: CR XR HIP RT COMPLETE AP PELVIS from 05/30/2024 FINDINGS: Bones: There is no fracture or contusion pattern. No bone marrow edema is seen. Joints: No significant joint effusion or gross labral defect is present. The SI joints and symphysis pubis are well maintained. Musculotendinous structures: High signal at the insertions of the gluteus medius and minimus tendons which indicates severe tendinitis versus partial tear. Intrapelvic structures: Left ovarian lesion measuring 3.6 cm is circumscribed and contains high signa l on T1 weighted images. Findings may represent a hemorrhagic cyst versus endometrioma. IMPRESSION: Severe tendinitis versus partial tears of the gluteus minimus and medius tendons. Left ovarian lesion consistent with hemorrhagic cyst versus endometrioma. DATA REPOSITORY:
== END 2024-07-19 02:46 ==
LOC: DI 02:26
PROVIDERS: PCP Nurse Practitioner Family; Visit Provider Student in an Organized Health Care Education/Training Program
DX: M19.012 Primary osteoarthritis, left shoulder (principal); M76.01 Gluteal tendinitis, right hip
CPT/HCPCS: 73721; 73221

== ENCOUNTER 2024-08-29 01:21 | Outpatient (CLI) | payer MEDICAID, SELFPAY ==
--- NOTE | 2024-08-29 07:30 | DI.US_ITS ---
Exam(s) US PELVIS TRANSVAGINAL EXAM: US PELVIS TRANSVAGINAL CLINICAL HISTORY: f/u LT ovarian cyst,N83.202 TECHNIQUE: Transabdominal and transvaginal imaging was performed using standard protocol. COMPARISON: CR XR HIP RT COMPLETE AP PELVIS from 05/30/2024 MR MR LUMBAR SPINE WO from 07/07/2024 MR MR LOWER JOINT RT WO from 07/19/2024 FINDINGS: UTERUS: Retroverted. 8.5 x 4.8 x 4.9 cm Endometrium: 8 mm Myometrium: Unremarkable. Cervix: Unremarkable. OVARIES: Right: Cyst or mass: None. Left: Cyst or mass: Circumscribed homogeneous echogenic area measuring 3.5 x 3.4 x 3.6 cm. No associ ated shadowing, cystic components or vascularity. DOPPLER: Color: Symmetric and uniform flow to both ovaries. No hyperemia. CUL-DE-SAC: Free fluid: None. IMPRESSION: 1. Normal-appearing uterus with endometrial stripe within normal limits. 2. 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 No change in size from prior MRI. DATA REPOSITORY:
== END 2024-08-29 01:41 ==
LOC: DI 01:21
PROVIDERS: PCP Family Medicine; Visit Provider Obstetrics & Gynecology
DX: D27.1 Benign neoplasm of left ovary (principal)
CPT/HCPCS: 76830; 76856

== ENCOUNTER 2025-02-01 03:53 | Outpatient (CLI) | payer MEDICAID, SELFPAY ==
--- NOTE | 2025-02-01 06:45 | DI.US_ITS ---
Exam(s) US PELVIS TRANSVAGINAL EXAM: US PELVIS TRANSVAGINAL CLINICAL HISTORY: left ovarian cyst,N83.202. TECHNIQUE: Transabdominal and transvaginal pelvic ultrasound was performed using standard protocol. COMPARISON: MR MR LOWER JOINT RT WO from 07/19/2024 US US PELVIS TRANSVAGINAL from 08/29/2024 FINDINGS: UTERUS: Position: The uterus is retroverted. Size: 4.1 long by 1.7 AP by 2.0 transverse cm Endometrium: 0.5 cm. Normal for patient's menstrual status. Myometrium: Unremarkable. Cervix: Unremarkable. OVARIES: The right ovary was only visualized transabdominally. Right: 2.5 x 1.2 x 1.5 cm Cyst or mass: No suspicious cystic or solid masses. Left: In the left adnexa, there is a well-circumscribed 4.1 x 3.8 x 3.8 cm homogeneously echogenic ma ss again seen. Previously this measured 3.5 x 3.4 x 3.6 cm. There has been interval increase in siz e. Sonographically, findings are suspicious for a dermoid. CUL-DE-SAC: Free fluid: None. Other: None. IMPRESSION: 1. Interval increase in size of the left adnexal hyperechoic mass which now measures 4.1 x 3.8 x 3.8 cm. This compares to 3.5 x 3.4 x 3.6 cm on the prior examination. This is suspicious for an under v ariant dermoid. 2. Right ovary is grossly unremarkable. DATA REPOSITORY:
== END 2025-02-01 04:13 ==
LOC: DI 03:53
PROVIDERS: PCP Family Medicine; Visit Provider Obstetrics & Gynecology
DX: N83.202 Unspecified ovarian cyst, left side (principal)
CPT/HCPCS: 76830; 76856

== ENCOUNTER 2025-08-04 18:17 | Emergency (ER) | payer MEDICAID, SELFPAY ==
[2025-08-04 18:20] VITALS: BP 126/76; PULSE 97; RESP 16; TEMP 36.6; O2SAT 98
--- NOTE | 2025-08-04 19:09 | W.ED.GENAD ---
Discharge Plan Disposition Patient Disposition: Home Condition: Stable Discharge Details Clinical Impression: Chronic pain Primary Care Provider: Unknown,Unknown ED Provider: Herminia Dudley Home Meds and New Rx's Prescriptions: New hydrocodone-acetaminophen 5-325 mg tablet 1 tab PO Q8H PRN (Reason: pain) Qty: 9 0RF Rx Instructions: Please take 1 tablet by mouth 3 times a day as needed for moderate to severe pain. Please take with food no driving or operating heavy machinery. hydroxychloroquine [Plaquenil] 200 mg tablet 200 mg PO BID 30 Days Qty: 60 0RF Rx Instructions: Take one tablet by mouth twice daily No Action Nexplanon 68 mg implant 1 implant subdermal ONCE Qty: 1 0RF Rx Instructions: as a single dose penciclovir [Denavir] 1.5 GM cream 1 ambrose Topical BID Qty: 1.5 nystatin (bulk) 1 EACH powder 1 unit Topical QID Qty: 60 Rx Instructions: Apply in skin folds furosemide 40 mg tablet 40 mg PO BID PRN (Reason: edema) Qty: 180 3RF PNV no.95-ferrous fumarate-FA 28 mg iron- 800 mcg tablet 1 tab PO DAILY Qty: 90 4RF cyclobenzaprine 10 mg tablet 10 mg PO HS PRN (Reason: muscle spasm) Qty: 20 0RF acetaminophen 500 mg tablet 500 mg PO Q6H PRN (Reason: fever or pain) Qty: 90 1RF ibuprofen 800 mg tablet 800 mg PO Q8H Qty: 90 1RF topiramate 50 mg tablet 50 mg PO BID Qty: 60 11RF phentermine 37.5 mg capsule 37.5 mg PO DAILY Qty: 28 2RF Rx Instructions: must administer 2 hours after breakfast duloxetine 60 mg capsule,delayed release(DR/EC) 60 mg PO DAILY Qty: 30 2RF hydrocodone-acetaminophen 5-325 mg tablet 1 tab PO Q4H PRN MDD 3 tabs Qty: 20 0RF hydroxychloroquine [Plaquenil] 200 mg tablet 200 mg PO BID Discharge Instructions Instructions: Chronic pain Additional Instructions: A prescription for the Vicodin and Plaquenil was sent to the pharmacy on file. Follow up with primary care provider in 3-5 days. Return to ED sooner if any worsening or concerns. Referrals: Jud Ingram [ [facility] STAFF PHYSICIAN, Medicine] Referral Note: ER follow up/ establish care/ call for appointment HPI General Mode of arrival: ambulatory. Date/Time Provider Initiated Documentation: 08/04/25 18:24. Limitations to Documentation: no limitations. Information obtained by: patient, RN notes reviewed and old records reviewed. HPI Narrative: 50-year-old female with a history of chronic back pain presents to the ER with a request for medication refills. Patient recently had 20 tablets of Vicodin filled on July 28 she reports that she takes 3 tablets daily and that she is down to 1 tablet at home. She is also requesting a refill of her Plaquenil. She does endorse some tingling and radiation of pain to her arms from her previous back injury which appears to be a endplate T3 old fracture. Denies any new injuries no loss of bowel or bladder control. Related Data Home Medications ?Medication ?Instructions ?Recorded ?Confirmed penciclovir 1 % topical cream 1 ambrose topical BID #1.5 grams 12/05/14 08/04/25 (Denavir) nystatin (bulk) 500 million unit 1 unit topical QID #60 grams 11/12/17 08/04/25 powder etonogestrel 68 mg subdermal 1 implant subdermal ONCE #1 ea 05/30/24 08/04/25 implant (Nexplanon) furosemide 40 mg tablet 40 mg PO BID PRN edema #180 tabs 08/23/24 08/04/25 vit no.95-ferrous 1 tab PO DAILY #90 tabs 10/14/24 08/04/25 fumarate 28 mg-folic acid 800 mcg tablet cyclobenzaprine 10 mg tablet 10 mg PO HS PRN muscle spasm #20 02/15/25 08/04/25 tab-caps acetaminophen 500 mg tablet 500 mg PO Q6H PRN fever or pain 05/12/25 08/04/25 #90 tabs ibuprofen 800 mg tablet 800 mg PO Q8H #90 tabs 05/12/25 08/04/25 topiramate 50 mg tablet 50 mg PO BID #60 tabs 05/12/25 08/04/25 phentermine 37.5 mg capsule 37.5 mg PO DAILY #28 caps 06/16/25 08/04/25 duloxetine 60 mg capsule,delayed 60 mg PO DAILY #30 caps 07/20/25 08/04/25 release hydrocodone 5 mg-acetaminophen 325 1 tab PO Q4H PRN #20 tab-caps 07/28/25 08/04/25 mg tablet hydrocodone 5 mg-acetaminophen 325 1 tab PO Q8H PRN pain #9 tabs 08/04/25 mg tablet hydroxychloroquine 200 mg tablet 200 mg PO BID Lupus 30 days #60 08/04/25 (Plaquenil) tabs hydroxychloroquine 200 mg tablet 200 mg PO BID lupus flare 08/04/25 08/04/25 (Plaquenil) Previous Rx's ?Medication ?Instructions ?Recorded etonogestrel 68 mg subdermal 1 implant subdermal ONCE #1 ea 05/30/24 implant (Nexplanon) furosemide 40 mg tablet 40 mg PO BID PRN edema #180 tabs 08/23/24 vit no.95-ferrous 1 tab PO DAILY #90 tabs 10/14/24 fumarate 28 mg-folic acid 800 mcg tablet cyclobenzaprine 10 mg tablet 10 mg PO HS PRN muscle spasm #20 02/15/25 tab-caps acetaminophen 500 mg tablet 500 mg PO Q6H PRN fever or pain 05/12/25 #90 tabs ibuprofen 800 mg tablet 800 mg PO Q8H #90 tabs 05/12/25 topiramate 50 mg tablet 50 mg PO BID #60 tabs 05/12/25 phentermine 37.5 mg capsule 37.5 mg PO DAILY #28 caps 06/16/25 duloxetine 60 mg capsule,delayed 60 mg PO DAILY #30 caps 07/20/25 release hydrocodone 5 mg-acetaminophen 325 1 tab PO Q4H PRN #20 tab-caps 07/28/25 mg tablet hydrocodone 5 mg-acetaminophen 325 1 tab PO Q8H PRN pain #9 tabs 08/04/25 mg tablet hydroxychloroquine 200 mg tablet 200 mg PO BID Lupus 30 days #60 08/04/25 (Plaquenil) tabs Allergies Allergy/AdvReac Type Severity Reaction Status Date / Time oxycodone AdvReac Intermediate Nausea & Verified 08/04/25 18:33 Vomiting General Stated Complaint: RX Refill ROVERTO: 5 Review of Systems All systems reviewed & are unremarkable except as noted in HPI and below Exam Const General: cooperative, healthy appearing, well developed and well groomed Nutritional Appearance: average body habitus Orientation: alert, awake and oriented x3 Resp Effort & Inspection: normal respiratory effort and able to speak in complete sentences Course Vital Signs Vital signs: Vital Signs Temperature 36.6 C 08/04/25 18:20 Pulse 97 H 08/04/25 18:20 Respiratory Rate 16 08/04/25 18:20 Blood Pressure 126/76 08/04/25 18:20 Pulse Oximetry 98 08/04/25 18:20 Temperature 36.6 C 08/04/25 18:20 Pulse 97 H 08/04/25 18:20 Respiratory Rate 16 08/04/25 18:20 Blood Pressure 126/76 08/04/25 18:20 Pulse Oximetry 98 08/04/25 18:20 Pain Level 8 08/04/25 18:20 Medical Decision Making 50-year-old female with a history of chronic back pain presents to the ER with a request for medication refills. Patient recently had 20 tablets of Vicodin filled on July 28 she reports that she takes 3 tablets daily and that she is down to 1 tablet at home. She is also requesting a refill of her Plaquenil. She does endorse some tingling and radiation of pain to her arms from her previous back injury which appears to be a endplate T3 old fracture. Denies any new injuries no loss of bowel or bladder control. The [employer] was reviewed and it does appear that patient did get 20 tablets of hydrocodone and Tylenol 5/325 mg on July 28 dispense #20. I did discuss this with the patient and she confirms that she did get the medication at that time however she is almost out after taking 3 tablets a day. She reports that she is going to reach out to another PCP on Thursday. I will give her a few tablets to get her through the weekend. This text was generated using [employer] system, please disregard any oddities of phrase or misspellings. Medical Records Medical records reviewed: Yes I reviewed the patient's medical records. PFSH All Active Problems (Updated 08/04/25 @ 19:15 by Herminia Dudley NP) Chronic pain (Chronic) No-show for appointment (Acute) Adjustment disorder (Chronic) Left ovarian cyst (Acute) c/w dermoid - minimally changed Jun 2024-January 2025 Right rotator cuff tear (Acute 05/26/24) Ischial bursitis of right side (Acute) Trochanteric bursitis, right hip (Acute) Compression fracture of body of thoracic vertebra (Acute) Right hip pain (Acute) Back pain (Acute) Right shoulder pain (Acute) Obesity (Chronic) Arthralgia (Acute) Hernia of muscle through fascia of lower leg (Acute) Right peroneal tendinosis (Acute) Right ankle pain (Acute) Primary osteoarthritis of left knee (Chronic) Steroid injection: 08/15/24; 10/26/23; 01/02/2022; 01/10/2021 (multiple injections by PCP previously) Rhytides (Acute) Acne (Chronic) acneiform pickers lesions Bursitis of shoulder, right (Chronic 02/08/16) Chronic bilateral low back pain without sciatica (Chronic 05/13/18) Chronic pain of left knee (Chronic 05/13/18) DEPO MEDROL 10/26/23 Hyperlipidemia (Chronic) Hypothyroidism (acquired) (Chronic 06/09/18) Meralgia paresthetica (Chronic 09/23/11) Morbid obesity (Chronic) Pain in limb (Chronic 09/23/11) Tarsal tunnel syndrome (Chronic 10/13/11) Lupus (systemic lupus erythematosus) (Chronic 01/24/13) Medical History (Updated 08/04/25 @ 19:15 by Herminia Dudley NP) Back pain due to injury External hemorrhoid Surgical History (Updated 05/30/24 @ 14:34 by Stephanie Atkins) S/P gastric sleeve procedure done in [place] History of section History of arthroscopic knee surgery knee surgery section x 3 Family History (Updated 09/02/24 @ 17:36 by Doretha Madrigal MD) Father Mental disorder Mother Diabetes Sister Diabetes Cancer Cervical vs endometrial/uterine Grandmother Diabetes Aunt Breast cancer Had a lumpectomy and then it spread and she from it. Social History Smoking/Tobacco Use Status: Never Second Hand Exposure: Yes Smoking risk assessment performed?: Yes Alcohol Intake: current Alcohol Intake frequency: a few times a week Alcohol type: beer, wine and hard liquor Drug use: Never Substance use type: does not use Caregiver/Support person: No Household members: spouse Do you need help understanding health information?: Never Pets and animals: Yes Pets and animals: cat(s) and dog(s) Sexually active: Yes Do you think of yourself as: straight/heterosexual Current gender identity: female What is your relationship status?: How often do you talk on the phone with friends or family?: three or more times per week How often do you get together with friends or relatives?: three or more times per week How often do you attend yazidi or protestant services?: 4 or more times per year Panel score (0-1 are the most socially isolated patients): 3 What type of physical activity do you participate in: walking and swimming Duration: 15-30 minutes/day Frequency: 3-4 times per week Alisa/Judaism: Oriental Orthodox Seatbelt use: always Helmet use: Yes Helmet use: always Drive intox or ride w/intox limo driver: No Do you feel safe in your relationship?: Yes
== END 2025-08-04 19:39 | disposition home or self-care (01) ==
LOC: ER 19:40
PROVIDERS: Emergency Provider Registered Nurse Emergency
DX: G89.29 Other chronic pain (principal)
CPT/HCPCS: 99283 ×2